=== PATIENT | male | born 1950 | race Caucasian/White ===

== ENCOUNTER 2017-04-09 10:20 | Emergency (ER) | payer MEDICARE, SELFPAY ==
[~2017-04-09] VITALS: Ht 188 cm; Wt 104.3 kg
[~2017-04-09 10:20] MED LIST: ACET325 PO; ALPR.25 PO; AMILODIPINE; AMLO5; AMLO5 PO; ASPI325 PO; ASPI325EC; ASPI81CH; ASPI81CH PO; ASPI81EC; ASPI81EC PO; ATECHL; Ambien10 MG PO; CALCAVITDA PO; CARV25; CARV25 PO; CARV3.125; CENTRUM SILVER1 EAC1 PO; CLOP75 PO; Cholest Off450 MG PO; Co Q-10100 MG PO; Coq-1030 MG PO; DIGO.125; DIGO.125 PO; DIGO.25 PO; DIOVAN/HCT; FLOXETINE; FLUO20; FLUO20 PO; GLIM2; GLIP5ER PO; HYDACE5 PO; HYDCHL12.5; HYDCHL25 PO; HYDMOR2 PO; HYDR1TAB94 PO; Humalog100 UNIT/1; Hydrochlorothia25 MG PO; IBUP400 PO; INSDET100 SUBQ; INSULANI SC; ISODIN20 PO; ISOMON20 PO; ISOMON30 PO; K-Dur 20 meq T20 MEQ PO; LAMO100 PO; LAMO25 PO; LAMO50 PO; LOSA50; LOSA50 PO; METF500; METO50 PO; METO50ER PO; MULTI VITAMIN1 EACH PO; NITR.4SL; NITR.4SL SL; Norco 5-325 Ta1 EACH PO; OXYACE5C PO; OXYACE5T; OXYACE5T PO; OXYC5 PO; POTCHL10ER PO; PRAV20 PO; Percocet 5-3251 EACH PO; ROSU10TA; ROSU10TA PO; ROSU5 PO; RXHYDMOR2 PO; SERT100 PO; SPIR25; SPIR25 PO; UBID10 PO; VALS80; VALS80 PO; WARF1; WARF1 PO; WARF2 PO; WARF3 PO; WARF4 PO; ZOLP10; ZOLP10 PO; Zofran8 MG PO; [UNRECOGNIZED DRUG - REMARK]
[2017-04-09 11:20] LABS: BASOPHILS ABSOLUTE AUTO 0.04 K/mm3 (0.00-0.23); BASOPHILS PERCENT AUTO 1 % (0-2); EOSINOPHILS ABSOLUTE AUTO 0.09 K/mm3 (0.00-0.68); EOSINOPHILS PERCENT AUTO 1 % (0-6); Hematocrit 52.3 % (37.0-53.0); Hemoglobin 18.2 g/dL (13.5-17.5); IMMATURE GRAN ABSOLUTE AUTO 0.03 K/mm3 (0.00-0.10); IMMATURE GRAN PERCENT AUTO 0 % (0-1); LYMPHOCYTES ABSOLUTE AUTO 1.81 K/mm3 (0.84-5.20); LYMPHOCYTES PERCENT AUTO 21 % (21-46); MONOCYTES ABSOLUTE AUTO 1.07 K/mm3 (0.16-1.47); MONOCYTES PERCENT AUTO 13 % (4-13); Mean Corpuscular HGB 30.4 pg (26.0-34.0); Mean Corpuscular HGB Conc 34.8 g/dL (31.5-36.5); Mean Corpuscular Volume 88 fL (80-100); Mean Platelet Volume 10.9 fL (9.1-12.4); NEUTROPHILS ABSOLUTE AUTO 5.54 K/mm3 (1.96-9.15); NEUTROPHILS PERCENT AUTO 65 % (41-73); Platelet Count 176 K/mm3 (150-400); RDW Coefficient Variation 12.7 % (11.7-14.2); RDW Standard Deviation 40.4 fL (35.1-46.3); Red Blood Cell Count 5.98 M/mm3 (4.30-5.90); White Blood Cell Count 8.58 K/mm3 (4.00-11.30)
[2017-04-09 11:35] LABS: Alanine Aminotransfer (ALT/SGP 25 U/L (12-78); Albumin, Blood 3.6 g/dL (3.4-5.0); Albumin/Globulin Ratio 0.9 (0.8-1.8); Alk Phos 82 U/L (50-136); Anion Gap 10 mmol/L (6-16); Aspartate Aminotrans (AST/SGOT 15 U/L (12-37); Bilirubin, Total 0.7 mg/dL (0.1-1.0); Blood Urea Nitrogen 20 mg/dL (8-24); Bun/Creatinine Ratio 24.6 (12.0-20.0); CO2, Blood 25 mmol/L (21-32); Calcium, Blood 8.9 mg/dL (8.5-10.1); Chloride, Blood 101 mmol/L (98-108); Creatinine, Blood 0.81 mg/dL (0.60-1.20); Globulin, Blood 3.8 g/dL (2.2-4.0); Glomerular Filtration Rate >60 (60-); Glucose, Blood 232 mg/dL (70-99); Potassium, Blood 4.1 mmol/L (3.5-5.5); Sodium, Blood 136 mmol/L (136-145); Total Protein, Blood 7.4 g/dL (6.4-8.2)
[2017-04-09 11:39] LABS: International Normalized Ratio 3.71; Prothrombin Time Results 40.2 Sec (9.7-11.5)
[2017-04-09 11:58] LABS: Digoxin (Lanoxin) 0.41 ug/mL (0.80-2.00)
[2017-04-09] MEDS ORDERED: ROSU10TA PO (14:23)
[2017-04-09 14:40] LABS: Source, Urine Clean Catch
[2017-04-09 15:13] LABS: Bilirubin, Urine Neg (Neg); Blood, Urine 3+ (Neg); Glucose Qualitative, Urine 3+ (Neg); Ketones, Urine Neg (Neg); Leukocyte Esterase, Urine Neg (Neg); Nitrite, Urine Neg (Neg); Protein, Urine 3+ (Neg); Specific Gravity, Urine 1.025 (1.003-1.022); Urobilinogen, Urine 1+ (Normal)
[2017-04-09 15:32] LABS: Appearance, Urine Clear (Clear); Color, Urine Yellow (P-Yellow)
[2017-04-09 15:33] LABS: White Blood Cells, Urine 0-2 /hpf (0-5)
[2017-04-09 15:34] LABS: Bacteria Not Seen /hpf; Red Blood Cells, Urine Not Seen /hpf (0-2); Squamous Epithelial Cells Not Seen /hpf (Few)
[2017-04-09 15:38] LABS: Troponin I <0.015 ng/mL (0.000-0.040)
[2017-04-09] MEDS ORDERED: Zofran Odt4 MG SL (17:44)
== END 2017-04-09 17:55 | disposition home or self-care (01) ==
LOC: ER 10:20
PROVIDERS: Emergency Medicine
DX: R07.9 Chest pain, unspecified (principal); R10.31 Right lower quadrant pain; R10.32 Left lower quadrant pain; I25.2 Old myocardial infarction; I48.91 Unspecified atrial fibrillation; E11.9 Type 2 diabetes mellitus without complications; I10 Essential (primary) hypertension; F41.9 Anxiety disorder, unspecified; Z79.899 Other long term (current) drug therapy; Z79.01 Long term (current) use of anticoagulants; Z87.442 Personal history of urinary calculi; Z95.5 Presence of coronary angioplasty implant and graft; Z79.82 Long term (current) use of aspirin
CPT/HCPCS: 36415; 71046; 71250; 74176; 80053; 80162; 81001; 83690; 84484; 85025; 85610; 93005; 93010; 96374; 99284; J2405

== ENCOUNTER → 2019-08-27 | Outpatient (CLI) | payer MEDICARE ==
[~2019-08-27] MED LIST changes: +Zofran Odt4 MG SL
[2019-08-27 11:41] LABS: Creatinine, Urine Random 91.9 mg/dL (27.00-270.00)
[2019-08-27 12:06] LABS: Microalb/Creat Ratio UR, Rand 496.192 mg/g (0.000-30.000)
== END | disposition home or self-care (01) ==
LOC: LAB SHORT 07:09 → OLS 07:09 → LAB FUT 08-03 08:20
PROVIDERS: Physician Assistant
DX: E11.69 Type 2 diabetes mellitus with other specified complication (principal)
CPT/HCPCS: 82043; 82570

== ENCOUNTER → 2019-11-18 | Outpatient (CLI) | payer MEDICARE | END | disposition home or self-care (01) | LOC: LAB SHORT 08:34 → PLD 08:34 | DX: L57.0 Actinic keratosis (principal) | CPT/HCPCS: 88305 ==

== ENCOUNTER → 2020-10-05 | Outpatient (CLI) | payer MEDICARE ==
[2020-10-05 16:30] LABS: International Normalized Ratio 1.77; Prothrombin Time Results 18.5 Sec (9.7-11.5)
== END | disposition home or self-care (01) ==
LOC: LAB SHORT 15:36
PROVIDERS: Physician Assistant
DX: Z79.01 Long term (current) use of anticoagulants (principal); Z51.81 Encounter for therapeutic drug level monitoring; R31.9 Hematuria, unspecified
CPT/HCPCS: 85610; 87086; 87147

== ENCOUNTER 2021-04-28 09:13 | Emergency (ER) | payer OTHER, MEDICARE ==
[~2021-04-28] VITALS: Ht 185.4 cm; Wt 122.5 kg
[2021-04-28] MEDS ORDERED: Norco 5-325 Ta1 EACH PO (11:16)
== END 2021-04-28 11:50 | disposition home or self-care (01) ==
LOC: ER 09:13
DX: S20.212A Contusion of left front wall of thorax, initial encounter (principal); I25.2 Old myocardial infarction; I48.91 Unspecified atrial fibrillation; E11.9 Type 2 diabetes mellitus without complications; R56.9 Unspecified convulsions; Z86.73 Personal history of transient ischemic attack (TIA), and cerebral infarction without residual deficits; Z79.01 Long term (current) use of anticoagulants; Z79.82 Long term (current) use of aspirin; Z79.899 Other long term (current) drug therapy; W01.0XXA Fall on same level from slipping, tripping and stumbling without subsequent striking against object, initial encounter
CPT/HCPCS: 51798; 71101; 93005; 93010; 99284-25; A9270

== ENCOUNTER 2021-05-03 22:29 | Inpatient (IN) | payer MEDICARE, OTHER ==
[~2021-05-03] VITALS: Ht 185.4 cm; Wt 133.5 kg
[~2021-05-03 22:29] MED LIST changes: -ISODIN20 PO; +Isosorbide Mono30 MG PO; +LANOXIN125 MCG PO; +SUBVENITE150 M1 PO
[2021-05-03 22:53] LABS: BASOPHILS ABSOLUTE AUTO 0.04 K/mm3 (0.00-0.23); BASOPHILS PERCENT AUTO 1 % (0-2); EOSINOPHILS ABSOLUTE AUTO 0.06 K/mm3 (0.00-0.68); EOSINOPHILS PERCENT AUTO 1 % (0-6); Hematocrit 51.4 % (37.0-53.0); Hemoglobin 17.2 g/dL (13.5-17.5); IMMATURE GRAN ABSOLUTE AUTO 0.03 K/mm3 (0.00-0.10); IMMATURE GRAN PERCENT AUTO 0 % (0-1); LYMPHOCYTES ABSOLUTE AUTO 0.86 K/mm3 (0.84-5.20); LYMPHOCYTES PERCENT AUTO 10 % (21-46); MONOCYTES ABSOLUTE AUTO 1.09 K/mm3 (0.16-1.47); MONOCYTES PERCENT AUTO 13 % (4-13); Mean Corpuscular HGB 30.6 pg (26.0-34.0); Mean Corpuscular HGB Conc 33.5 g/dL (31.5-36.5); Mean Corpuscular Volume 91 fL (80-100); Mean Platelet Volume 10.7 fL (9.1-12.4); NEUTROPHILS ABSOLUTE AUTO 6.28 K/mm3 (1.96-9.15); NEUTROPHILS PERCENT AUTO 75 % (41-73); Platelet Count 175 K/mm3 (150-400); RDW Coefficient Variation 13.5 % (11.7-14.2); RDW Standard Deviation 45.5 fL (35.1-46.3); Red Blood Cell Count 5.63 M/mm3 (4.30-5.90); White Blood Cell Count 8.36 K/mm3 (4.00-11.30)
[2021-05-03] MEDS ORDERED: AMLO10 PO (23:00)
[2021-05-03] MEDS ORDERED: METO50 PO (23:05)
[2021-05-03] MEDS ORDERED: POTCHL20ER PO (23:05)
[2021-05-03] MEDS ORDERED: NAMENDA XR7 MG PO (23:07)
[2021-05-03] MEDS ORDERED: METF500 PO (23:07)
[2021-05-03] MEDS ORDERED: DONE10 PO (23:08)
[2021-05-03] MEDS ORDERED: GLIP5 PO (23:08)
[2021-05-03] MEDS ORDERED: BASAGLAR K100 UNIT/8 SC (23:09)
[2021-05-03] MEDS ORDERED: FIASP 100100 UNIT/3 SC (23:12)
[2021-05-03 23:15] LABS: Alanine Aminotransfer (ALT/SGP 37 U/L (12-78); Albumin, Blood 3.4 g/dL (3.4-5.0); Albumin/Globulin Ratio 0.8 (0.8-1.8); Alk Phos 105 U/L (50-136); Anion Gap 10 mmol/L (6-16); Aspartate Aminotrans (AST/SGOT 29 U/L (12-37); Bilirubin, Total 0.7 mg/dL (0.1-1.0); Blood Urea Nitrogen 15 mg/dL (8-24); Bun/Creatinine Ratio 17.2 (12.0-20.0); CO2, Blood 27 mmol/L (21-32); Calcium, Blood 8.8 mg/dL (8.5-10.1); Chloride, Blood 97 mmol/L (98-108); Creatinine, Blood 0.87 mg/dL (0.60-1.20); Glomerular Filtration Rate >60 (60-); Glucose, Blood 188 mg/dL (70-99); Potassium, Blood 3.6 mmol/L (3.5-5.5); Sodium, Blood 134 mmol/L (136-145); Total Protein, Blood 7.4 g/dL (6.4-8.2)
[2021-05-03 23:34] LABS: Influenza A, PCR NEGATIVE (NEGATIVE); Influenza B, PCR NEGATIVE (NEGATIVE); Resp Syncytial Virus, PCR NEGATIVE (NEGATIVE)
[2021-05-03 23:36] LABS: SARS-Cov-2 (COVID-19) PCR, MMC POSITIVE (NEGATIVE)
[2021-05-04 04:00] LABS: Source, Urine Foley catheter
[2021-05-04 04:04] LABS: Bilirubin, Urine Neg (Neg); Blood, Urine 2+ (Neg); Glucose Qualitative, Urine 2+ (Neg); Ketones, Urine Neg (Neg); Leukocyte Esterase, Urine Neg (Neg); Nitrite, Urine Neg (Neg); Protein, Urine 3+ (Neg); Urobilinogen, Urine NORM (Normal)
[2021-05-04 04:12] LABS: BASOPHILS ABSOLUTE AUTO 0.03 K/mm3 (0.00-0.23); BASOPHILS PERCENT AUTO 0 % (0-2); EOSINOPHILS ABSOLUTE AUTO 0.01 K/mm3 (0.00-0.68); EOSINOPHILS PERCENT AUTO 0 % (0-6); Hematocrit 45.9 % (37.0-53.0); Hemoglobin 15.3 g/dL (13.5-17.5); IMMATURE GRAN ABSOLUTE AUTO 0.05 K/mm3 (0.00-0.10); IMMATURE GRAN PERCENT AUTO 1 % (0-1); LYMPHOCYTES ABSOLUTE AUTO 0.77 K/mm3 (0.84-5.20); LYMPHOCYTES PERCENT AUTO 10 % (21-46); MONOCYTES ABSOLUTE AUTO 0.46 K/mm3 (0.16-1.47); MONOCYTES PERCENT AUTO 6 % (4-13); Mean Corpuscular HGB 30.4 pg (26.0-34.0); Mean Corpuscular HGB Conc 33.3 g/dL (31.5-36.5); Mean Corpuscular Volume 91 fL (80-100); Mean Platelet Volume 10.5 fL (9.1-12.4); NEUTROPHILS ABSOLUTE AUTO 6.47 K/mm3 (1.96-9.15); NEUTROPHILS PERCENT AUTO 83 % (41-73); Platelet Count 176 K/mm3 (150-400); RDW Coefficient Variation 13.6 % (11.7-14.2); RDW Standard Deviation 45.6 fL (35.1-46.3); Red Blood Cell Count 5.03 M/mm3 (4.30-5.90); White Blood Cell Count 7.79 K/mm3 (4.00-11.30)
[2021-05-04 04:29] LABS: International Normalized Ratio 2.23; Prothrombin Time Results 22.2 Sec (9.7-11.5)
[2021-05-04 04:31] LABS: Anion Gap 8 mmol/L (6-16); Blood Urea Nitrogen 16 mg/dL (8-24); Bun/Creatinine Ratio 18.6 (12.0-20.0); CO2, Blood 29 mmol/L (21-32); Calcium, Blood 8.3 mg/dL (8.5-10.1); Chloride, Blood 98 mmol/L (98-108); Creatinine, Blood 0.86 mg/dL (0.60-1.20); Glomerular Filtration Rate >60 (60-); Glucose, Blood 269 mg/dL (70-99); Potassium, Blood 3.7 mmol/L (3.5-5.5); Sodium, Blood 135 mmol/L (136-145)
[2021-05-04 04:38] LABS: Color, Urine Yellow (P-Yellow)
[2021-05-04 04:39] LABS: Appearance, Urine Clear (Clear); Bacteria Not Seen /hpf; Red Blood Cells, Urine 0-2 /hpf (0-2); Squamous Epithelial Cells Rare /hpf (Few); Transitional Epithelial Cells Few /hpf (0-Rare); White Blood Cells, Urine Rare /hpf (0-5)
[2021-05-04 04:44] LABS: Digoxin (Lanoxin) 0.33 ug/mL (0.80-2.00)
--- NOTE | 2021-05-04 06:13 | NUR ---
ASSUMPTION OF CARE PT ARRIVED TO ICU VIA ROSE [place], [place] TO ICU BED VIA SLIDER SHEET. PT ALERT TO PERSON AND PLACE, FOLLOWING COMMANDS, UNDERLYING STAGE 5 ALZHEIMERS. PT c HX OF PREVIOUS STROKE c SIGNIFICANT DEFICIT, UNABLE TO CARE FOR SELF, CANNOT PROVIDE DETAILED HISTORY. PT COVID POSITIVE, ON 2LPM O2 VIA NC c O2 SATS >90%. A-FIB IN 110-130'S ON GREASE MAKER HEAD. PT AND LINENS MOIST FROM URINARY INCONTINENCE, SHEETS CHANGED. TEMP PROBE COLEMAN INSERTED, PT AFEBRILE. 20GA IV IN R HAND c NS INFUSING, 1L NS COMPLETE SHORTLY AFTER ARRIVAL. SECOND IV ESTABLISHED IN L ARM BUT INFILTRATED c PT MOVING IN BED. PT VERY RESTLESS UPON ARRIVAL, FAN ON PT PER PT REQUEST. PT CURRENTLY IN POSITION OF COMFORT, SLEEPING c CALL LIGHT IN REACH.
--- NOTE | 2021-05-04 06:26 | NUR ---
FAMILY UPDATE THE FOLLOWING INFORMATION RECEIVED FROM PTS DAUGHTER JOE VIA PHONE CONVERSATION. PT LIVES AT HOME WITH SPOUSE, FABRIZIO. FABRIZIO IS [place] AND SPEAKS LIMITED TURKISH. [employer] [facility] WITH DAILY NEEDS DURING THE WEEKDAYS. FAMILY ATTEMPTED TO TRANSITION PT TO [facility] BUT PT HAS STAGE 5 ALZHEIMERS. PTS ADVANCED DIRECTED AT HOME WITH DAUGHTER MARIE. MEDICAL POWER OF GEOLOGICAL SAMPLE TESTER SHARED BETWEEN JOE HUITRON, MARIE DENISE, AND SHOAIB. JOE STATED SHE WOULD ASK MARIE TO BRING BY UPDATED MED LIST, ADVANCED DIRECTIVE, AND ANY OTHER APPLICABLE INFORMATION. MARIE REQUESTS TO BE UPDATED OF PT CONDITION/ PRIOR TO DC. MARIE DENISE- [phone].
--- NOTE | 2021-05-04 07:30 | NUR ---
ASSUMED CARE: PT RESTING IN BED, 2L NC IN PLACE WITH SATS IN MID 90S. AFIB ON TELE WITH HR IN 1TEENS. NO ACUTE NEEDS OR CONCERNS AT THIS TIME.
--- NOTE | 2021-05-04 12:05 | NUR ---
PT WAS ALARMING FOR O2 SATS DROPPING INTO 80S THEN WOULD INCREASE INTO 90S. MOVED NC INTO MOUTH DURING SLEEP. WHEN SPEAKING WITH PT, HE IS ABLE TO MAKE NEEDS KNOWN AND STATES HE IS ABLE TO FEED SELF. CALL TO PT'S DAUGHTER REGARDING MEDICATION LIST. SHE STATES SHE HAD CONVERSATION WITH DR BLAKELY REGARDING MEDS AND DISCHARGE PLANS, ESPECIALLY FOR MEMORY CARE FACILITY. CALL TO DR BLAKELY WHO STATES HE REFERRED TO JUANA'S MEDICATION LIST BUT RN WILL LOOK FOR UPDATED LIST DAUGHTER STATES SHE FAXED. AWARE OF INCREASED BLOOD SUGARS AND WILL REVIEW. BUILDING ADMIN CONUSULT TO BE PLACED DUE TO FAMILY WANTING HELP WITH DISCHARGE PLANS
--- NOTE | 2021-05-04 12:25 | NUR ---
DAUGHTER ATTEMPTED TO FAX MED LIST THAT WAS FROM [facility]. NO FAX FOUND. CALL TO DAUGHTER WHO STATES SHE WILL ATTEMPT TO FIND OUT FROM FAMILY MEMBERS IF ANY LIST IS AVAILABLE BEYOND WHAT WE ALREADY HAVE
--- NOTE | 2021-05-04 12:34 | NUR ---
DR BLAKELY AWARE THAT WE ARE WAITING FOR SECOND FAX TO VERIFY MED LIST. PT/OT CONSULTS IN PLACE TO HELP WITH EVALUATIONS AND DISCHARGE PLANNING
--- NOTE | 2021-05-04 12:50 | NUR ---
DAUGHTER CALLED AND STATED THAT [facility] LIST THAT WAS SENT WITH PT WAS ONLY MED LIST FAMILY COULD FIND.
--- NOTE | 2021-05-04 16:08 | NUR ---
ASSISTED PT WITH PHONE CALL WITH HIS DAUGHTER. PT TOLD DAUGHTER THAT HE HAD NOT BEEN EATING OR DRINKING. DAUGHTER THEN SPOKE WITH THIS RN AND ASKED ABOUT IT. RN TOLD DAUGHTER THAT PT HAS BEEN EATING MEALS TODAY. PT ASKED WHAT HE HAD AND RN REMINDED HIM. PT THEN SAID "OH THAT'S RIGHT." DAUGHTER WAS SATISFIED WITH THIS AND HAD NO FURTHER QUESTIONS
--- NOTE | 2021-05-04 18:09 | NUR ---
SHIFT SUMMARY: PT ON RA, SATTING MID 90S. AFIB ON TELE WITH HR 105. PRN AVAILABLE IF HR GETS ABOVE 120 CONSISTENTLY. FAMILY HAS BEEN UPDATED THIS SHIFT ON PT'S STATUS. AWAITING MEDICAL FLOOR BED. PT/OT EVALUATED WITH RECOMMENDATION FOR MEMORY CARE FACILITY. PT'S SHORT TERM MEMORY SEEMS TO BE WHERE HE STRUGGLES, HAS POOR SHORT TERM RECALL BUT [facility] APPEARS IN TACT. POWER GLIDE PLACED AND IV FLUIDS RUNNING X1 BAG. NO ACUTE NEEDS AT THIS TIME.
--- NOTE | 2021-05-04 19:30 | NUR ---
ASSUMPTION OF CARE PT IS ALERT, VSS W/NO S/S OF ACUTE DISTRESS NOTED AT TIME OF ASSUMPTION OF CARE
[2021-05-05 05:24] LABS: BASOPHILS ABSOLUTE AUTO 0.02 K/mm3 (0.00-0.23); BASOPHILS PERCENT AUTO 0 % (0-2); EOSINOPHILS ABSOLUTE AUTO 0.01 K/mm3 (0.00-0.68); EOSINOPHILS PERCENT AUTO 0 % (0-6); Hematocrit 43.8 % (37.0-53.0); Hemoglobin 14.6 g/dL (13.5-17.5); IMMATURE GRAN ABSOLUTE AUTO 0.04 K/mm3 (0.00-0.10); IMMATURE GRAN PERCENT AUTO 1 % (0-1); LYMPHOCYTES ABSOLUTE AUTO 1.62 K/mm3 (0.84-5.20); LYMPHOCYTES PERCENT AUTO 19 % (21-46); MONOCYTES ABSOLUTE AUTO 1.37 K/mm3 (0.16-1.47); MONOCYTES PERCENT AUTO 16 % (4-13); Mean Corpuscular HGB 30.4 pg (26.0-34.0); Mean Corpuscular HGB Conc 33.3 g/dL (31.5-36.5); Mean Corpuscular Volume 91 fL (80-100); Mean Platelet Volume 10.2 fL (9.1-12.4); NEUTROPHILS ABSOLUTE AUTO 5.29 K/mm3 (1.96-9.15); NEUTROPHILS PERCENT AUTO 63 % (41-73); Platelet Count 179 K/mm3 (150-400); RDW Coefficient Variation 13.4 % (11.7-14.2); RDW Standard Deviation 45.5 fL (35.1-46.3); White Blood Cell Count 8.35 K/mm3 (4.00-11.30)
[2021-05-05 05:39] LABS: Albumin, Blood 2.9 g/dL (3.4-5.0); Anion Gap 7 mmol/L (6-16); Blood Urea Nitrogen 22 mg/dL (8-24); Bun/Creatinine Ratio 28.1 (12.0-20.0); CO2, Blood 30 mmol/L (21-32); Calcium, Blood 8.3 mg/dL (8.5-10.1); Chloride, Blood 99 mmol/L (98-108); Creatinine, Blood 0.78 mg/dL (0.60-1.20); Glomerular Filtration Rate >60 (60-); Glucose, Blood 299 mg/dL (70-99); Phosphorus, Blood 3.1 mg/dL (2.5-4.9); Potassium, Blood 3.5 mmol/L (3.5-5.5); Sodium, Blood 136 mmol/L (136-145)
--- NOTE | 2021-05-05 06:26 | NUR ---
SHIFT SUMMERY NO ACUTE CHANGES OVERNIGHT
--- NOTE | 2021-05-05 07:30 | NUR ---
ASSUMED CARE: PT RESTING IN BED WATCHING TV. 2L NC IN PLACE FOR DESATURATION WITH SLEEP. DR BLAKELY CAME TO SEE PT THIS AM WITH NO NEW ORDERS. STATES HE WILL UPDATE FAMILY TODAY. PT IS CURRENTLY AFIB WITH PVCS AT 95. NO ACUTE NEEDS OR CONCERNS.
--- NOTE | 2021-05-05 13:10 | NUR ---
PT STATES HE IS HAVING LEFT SHOULDER PAIN. SPOKE WITH DR BLAKELY AND RECIEVED ORDERS FOR TYLENOL PRN. WHEN APPROACHING PT WITH TYLENOL HE SAID HIS PAIN HAD BEEN IGNORED FOR HOURS. REMINDED HIM THAT ONCE HE MENTIONED THE PAIN, THIS RN CONTACTED AND GOT ORDERS FOR MEDICATIONS AND BROUGHT MEDS IN WHEN AVAILABLE. REMINDED HIM THAT NEW MEDICATIONS WAS A PROCESS THAT TAKES SOME TIME. PT BECAME APOLOGETIC. SPOKE WITH PALLIATIVE CARE TO SEE IF PT WOULD QUALIFY FOR HOSPICE AND RELAYED TO HER THAT PT IS RECOMMENDED FOR MEMORY CARE FACILITY.
--- NOTE | 2021-05-05 14:56 | NUR ---
REPORT CALLED TO ROSALIA SHER. PT'S FAMILY AWARE OF TRANSFER AND STOOD OUTSIDE PT'S WINDOW AND SPOKE TO PT OVER THE PHONE. PT MEDICATED FOR PAIN AND STATED HE GOT RELIEF WITH THIS. WHEN FAMILY LEFT, PT TRANSFERRED VIA BED TO ROOM 310
--- NOTE | 2021-05-05 16:50 | NUR ---
Palliative Care note: Extensive conversation by speaker phone with pt's two daughters and son. Their primary goal at this time is to get pt placed in a memory care facility with as much support in place as possible. They have been working on this prior to this admission and have been in contact with [facility] and [facility] alondra godoy. Pt had a hospital stay approx a week ago due to a fall and injury at home. His is his primary CG, Beth nurse visits and [facility] care provides some assist but cannot staff all the hours that Jeremi is approved for. 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 She is an ESL speaker and family has been his advocate for placement and health care decisions. Sandra reports pt's is very petite and she is unsure how she has been able to physically give the assist her dad, "a very big layla", has needed with transfers and mobility. I spoke to family in detail about hospice in the future, criteria required, what it would look like in a memory care unit and if future events such as infection, falls or fx, CVA were to occur. My sense is, in agreement with and Family, that pt may not meet hospice criteria at this time with dx of dementia but his current COVID and sepsis may be the start of a more rapid decline or inability to recover. My plan is to contact Beth and speak with his visiting nurse who will have a better idea of his baseline. plans to meet with family in person tomorrow to further discuss plans for care. Pt was transferred from ICU to medical floor this afternoon. His nurse was updated on all of above. Screener notified of am family/ meeting and VM left for EFM CM re: same.
--- NOTE | 2021-05-05 17:10 | NUR ---
SHIFT SUMMARY PATIENT TRANSFERRED FROM ICU AT 1510. PATIENT SETTLED INTO ROOM. FAMILY NOTIFIED OF ROOM CHANGE. PATIENT DENIES PAIN, NAUSEA, AND SHORTNESS OF BREATH. PATIENT IS SATURATING AT 93% ON ROOM AIR. I DID GET REPORT THAT PATIENT HAS BEEN DESATTING AT NIGHT WHEN ASLEEP. PATIENT IS A 2 PERSON MAX ASSIST TO GET OUT OF BED. PER FAMILY, HE IS ALMOST BEDBOUND AT HOME. PALLIATIVE CARE CONSULT TODAY, PATIENT MADE DNR. PER DR. BLAKELY, 3 FAMILY MEMBERS COMING TOMORROW FOR MEETING WITH DOCTOR AND PALLIATIVE CARE. PATIENT IS EATING AND DRINKING WELL. PATIENT IS PLEASANTLY CONFUSED. PATIENT HAS ALMOST NO SHORT TERM MEMORY. PATIENT IS AWAITING MEMORY CARE PLACEMENT.
[2021-05-05] MEDS ORDERED: TRIDERM28.4 GM TOP (20:52)
[2021-05-05] MEDS ORDERED: BUME1 PO (20:53)
[2021-05-05] MEDS ORDERED: ALEVAZOL56.7 G1 TOP (20:55)
[2021-05-05] MEDS ORDERED: Norco 5-325 Ta1 EACH PO (21:00)
--- NOTE | 2021-05-06 05:47 | NUR ---
Patient is alert and oriented to self. Patient is forgetful. He is able to follow commands but cannot recall anything from previous conversation. He started getting agitated in the morning insisting he wants to get up and pee. He also wants to go home. Educated patient that he has a barrientos cathether in place. Patient is not understanding that. Urine output from barrientos catheter is light pink. He was attempting to pull it out. It could be from trauma from pulling. Informing MD through telephone now. Patient is redirectable but impulsive. Patients call light within reach. Bed alarm on. Bed in lowest position. 3 bed rails up. educated patient not to get up without assistance.
--- NOTE | 2021-05-06 05:54 | NUR ---
Informed Dr. Martin about pink output from barrientos cathether. said to monitor. Hold blood thinners for the AM will let morning nurse know. Will continue to monitor barrientos cathether output until end of shift.
[2021-05-06 06:18] LABS: BASOPHILS ABSOLUTE AUTO 0.03 K/mm3 (0.00-0.23); BASOPHILS PERCENT AUTO 0 % (0-2); EOSINOPHILS ABSOLUTE AUTO 0.03 K/mm3 (0.00-0.68); EOSINOPHILS PERCENT AUTO 0 % (0-6); Hematocrit 46.6 % (37.0-53.0); Hemoglobin 15.5 g/dL (13.5-17.5); IMMATURE GRAN ABSOLUTE AUTO 0.06 K/mm3 (0.00-0.10); IMMATURE GRAN PERCENT AUTO 1 % (0-1); LYMPHOCYTES ABSOLUTE AUTO 2.33 K/mm3 (0.84-5.20); LYMPHOCYTES PERCENT AUTO 20 % (21-46); MONOCYTES ABSOLUTE AUTO 1.12 K/mm3 (0.16-1.47); MONOCYTES PERCENT AUTO 9 % (4-13); Mean Corpuscular HGB 30.1 pg (26.0-34.0); Mean Corpuscular HGB Conc 33.3 g/dL (31.5-36.5); Mean Corpuscular Volume 91 fL (80-100); Mean Platelet Volume 10.8 fL (9.1-12.4); NEUTROPHILS ABSOLUTE AUTO 8.33 K/mm3 (1.96-9.15); NEUTROPHILS PERCENT AUTO 70 % (41-73); Platelet Count 212 K/mm3 (150-400); RDW Coefficient Variation 13.3 % (11.7-14.2); RDW Standard Deviation 44.3 fL (35.1-46.3); Red Blood Cell Count 5.15 M/mm3 (4.30-5.90)
--- NOTE | 2021-05-06 06:20 | NUR ---
Patient refused blood pressure medications last night and this morning. Her blood pressure is elevated, educated patient about high blood pressure. She still continues to refuse her pills.
[2021-05-06 06:53] LABS: Albumin, Blood 3.1 g/dL (3.4-5.0); Anion Gap 9 mmol/L (6-16); Blood Urea Nitrogen 18 mg/dL (8-24); CO2, Blood 30 mmol/L (21-32); Calcium, Blood 7.9 mg/dL (8.5-10.1); Chloride, Blood 97 mmol/L (98-108); Creatinine, Blood 0.72 mg/dL (0.60-1.20); Glomerular Filtration Rate >60 (60-); Glucose, Blood 195 mg/dL (70-99); Phosphorus, Blood 2.5 mg/dL (2.5-4.9); Potassium, Blood 3.2 mmol/L (3.5-5.5); Sodium, Blood 136 mmol/L (136-145)
--- NOTE | 2021-05-06 14:58 | NUR ---
APD usp application has been approved. Per clinical case manager Jamila Willis. Contacted the following memory care facilities: 1. [facility]/Kaela [phone] No Medicaid openings 2. [facility]/Mary Beth [phone] No Medicaid openings 3. [facility] Knott/Diana [phone] Declined patient due to high acuity ratio and staffing 4. [facility]/[phone] No Medicaid openings 5. [facility]/Lalo [phone] Em[facility] packet [facility] [email or web address] [employer]
--- NOTE | 2021-05-06 17:44 | NUR ---
Case conference with pt's bedside RN after transfer to medical floor. Update on current status and family meeting with and CM. Will remain available if needed further.
--- NOTE | 2021-05-06 18:23 | NUR ---
PT AOX3 AND COOPERATIVE OF CARE. PT HAS BEEN DOING WELL. AT TIMES NEEDS REDIRECTED THAT HE IS STAYING AT THE HOSPITAL. BED ALARM IS NEEDED IN CASE HE GETS IMPULSIVE DUE TO THINKING HE IS LEAVING SOON. PT TREATED FOR L SHOULDER PAIN PER EMAR. O2 WAS DESATING A BIT IN THE AM AND HE WAS KEEP ON 2L. LAST PART OF THE DAY PT WAS RA AND SATING IN THE 90s. NO DISTRESS NOTED WILL CONTINUE TO MONITOR.
[2021-05-07 05:14] LABS: BASOPHILS ABSOLUTE AUTO 0.01 K/mm3 (0.00-0.23); BASOPHILS PERCENT AUTO 0 % (0-2); EOSINOPHILS ABSOLUTE AUTO 0.02 K/mm3 (0.00-0.68); EOSINOPHILS PERCENT AUTO 0 % (0-6); Hematocrit 46.4 % (37.0-53.0); Hemoglobin 15.5 g/dL (13.5-17.5); IMMATURE GRAN ABSOLUTE AUTO 0.04 K/mm3 (0.00-0.10); IMMATURE GRAN PERCENT AUTO 1 % (0-1); LYMPHOCYTES ABSOLUTE AUTO 1.96 K/mm3 (0.84-5.20); LYMPHOCYTES PERCENT AUTO 23 % (21-46); MONOCYTES ABSOLUTE AUTO 1.06 K/mm3 (0.16-1.47); MONOCYTES PERCENT AUTO 13 % (4-13); Mean Corpuscular HGB 30.3 pg (26.0-34.0); Mean Corpuscular HGB Conc 33.4 g/dL (31.5-36.5); Mean Corpuscular Volume 91 fL (80-100); Mean Platelet Volume 10.6 fL (9.1-12.4); NEUTROPHILS ABSOLUTE AUTO 5.34 K/mm3 (1.96-9.15); NEUTROPHILS PERCENT AUTO 63 % (41-73); Platelet Count 189 K/mm3 (150-400); RDW Coefficient Variation 13.2 % (11.7-14.2); RDW Standard Deviation 43.8 fL (35.1-46.3); Red Blood Cell Count 5.12 M/mm3 (4.30-5.90); White Blood Cell Count 8.43 K/mm3 (4.00-11.30)
[2021-05-07 05:53] LABS: Albumin, Blood 2.9 g/dL (3.4-5.0); Anion Gap 7 mmol/L (6-16); Blood Urea Nitrogen 20 mg/dL (8-24); Bun/Creatinine Ratio 24.2 (12.0-20.0); CO2, Blood 32 mmol/L (21-32); Chloride, Blood 99 mmol/L (98-108); Creatinine, Blood 0.83 mg/dL (0.60-1.20); Glomerular Filtration Rate >60 (60-); Glucose, Blood 249 mg/dL (70-99); Phosphorus, Blood 3.2 mg/dL (2.5-4.9); Potassium, Blood 3.4 mmol/L (3.5-5.5); Sodium, Blood 138 mmol/L (136-145)
--- NOTE | 2021-05-07 06:16 | NUR ---
PM SHIFT SUMMARY MR. DOYLE'S NC FELL OFF DURING THE MORNING AND HIS VS AT THIS TIME SHOWED A 90% SPO2. I PUT HIM BACK ON HIS NC AT 0610 AT 1.5L TO BRING THIS VALUE BACK UP A BIT. HE WAS VERY PLEASANT DURING MED PASS AND BLOOD DRAW. HE HAS NO COMPLAINTS AT THIS TIME.
--- NOTE | 2021-05-07 10:46 | NUR ---
Follow-up Call to [facility]: Spoke with Lalo Houser; patient declined due to insulin fluctuations. Facility has a increased population of high acuity patients and unable to accept patient at this time. Left message with Nadege Ramirez to follow-up on referral.
--- NOTE | 2021-05-07 15:36 | NUR ---
APD alf application has been approved. Per showcase trimmer Jamila Willis. Contacted the following memory care/alf facilities: 1. [facility] [phone] [place]/ declined due to max assist 2. [facility] [phone]/No Medicaid openings 3. Mira Gray [facility] [phone] faxed referral packet 4. Mar[facility] Olson [phone]/ private pay only 5. [facility] [phone]/private pay only 6. [facility] [phone] left message with Ranjith 7. Sent referral packet to Genoveva larios ([facility] and [facility])
--- NOTE | 2021-05-07 18:05 | NUR ---
NO ACUTE CHANGES AT THIS TIME PT IS AOX2-3 WITH MILD CONFUSION. PT WAS UP IN CHAIR AND COOPERATES WITH CARE. PT WILL USE CALL LIGHT. PT HAS COLEMAN REMOVED AND TOLERATED WELL. NO DISTRESS NOTED WILL CONTINUE TO MONITOR.
[2021-05-08 06:54] LABS: BASOPHILS ABSOLUTE AUTO 0.03 K/mm3 (0.00-0.23); BASOPHILS PERCENT AUTO 0 % (0-2); EOSINOPHILS ABSOLUTE AUTO 0.07 K/mm3 (0.00-0.68); EOSINOPHILS PERCENT AUTO 1 % (0-6); Hematocrit 47.1 % (37.0-53.0); Hemoglobin 16.1 g/dL (13.5-17.5); IMMATURE GRAN ABSOLUTE AUTO 0.07 K/mm3 (0.00-0.10); IMMATURE GRAN PERCENT AUTO 1 % (0-1); LYMPHOCYTES ABSOLUTE AUTO 2.37 K/mm3 (0.84-5.20); LYMPHOCYTES PERCENT AUTO 21 % (21-46); MONOCYTES ABSOLUTE AUTO 1.22 K/mm3 (0.16-1.47); MONOCYTES PERCENT AUTO 11 % (4-13); Mean Corpuscular HGB 30.5 pg (26.0-34.0); Mean Corpuscular HGB Conc 34.2 g/dL (31.5-36.5); Mean Corpuscular Volume 89 fL (80-100); Mean Platelet Volume 10.6 fL (9.1-12.4); NEUTROPHILS ABSOLUTE AUTO 7.34 K/mm3 (1.96-9.15); NEUTROPHILS PERCENT AUTO 66 % (41-73); Platelet Count 205 K/mm3 (150-400); RDW Coefficient Variation 13.1 % (11.7-14.2); RDW Standard Deviation 42.5 fL (35.1-46.3); Red Blood Cell Count 5.28 M/mm3 (4.30-5.90)
[2021-05-08 07:17] LABS: Albumin, Blood 2.8 g/dL (3.4-5.0); Anion Gap 7 mmol/L (6-16); Blood Urea Nitrogen 20 mg/dL (8-24); Bun/Creatinine Ratio 28.4 (12.0-20.0); CO2, Blood 31 mmol/L (21-32); Chloride, Blood 98 mmol/L (98-108); Glomerular Filtration Rate >60 (60-); Glucose, Blood 211 mg/dL (70-99); Phosphorus, Blood 2.8 mg/dL (2.5-4.9); Potassium, Blood 3.1 mmol/L (3.5-5.5); Sodium, Blood 136 mmol/L (136-145)
--- NOTE | 2021-05-08 07:22 | NUR ---
PM SHIFT SUMMARY PATIENT NO LONGER HAS HIS COLEMAN CATHETER IN, WHICH WAS AL'ED DURING AM SHIFT. HE IS NOW ON Q6 BLADDER SCANS WITH AN ORDER TO STRAIGHT CATH IF VOLUME OVER 500ML. HE HAS NOT BEEN OVER 200ML ON EITHER SCAN, HE IS VERY INCONTINENT. I EDUCATED HIM A FEW TIMES ON CALLING FOR HELP WITH THE URINAL BUT HE STATES HE CANNOT USE IT. WE CHANGED HIM ABOUT 6 TIMES DURING THE SHIFT. AT ONE POINT AROUND 0300, HE GOT VERY ANGRY THAT HE WAS WET AND WE WERE NTO DOING OUR JOBS. HE THEN STATED HE CAN'T TELL US WHEN HE HAS TO GO BECAUSE HE "HAS A BRAIN ISSUE" GOING ON. HE APOLOGIZED FOR THE OUTBURST AND STATED HE LOVES THE CARE WE PROVIDE. BLOOD CULTURES AT DAY 4 HAVE BEEN NEGATIVE. BLOOD PRESSURE IS STILL RUNNING INT HE 160-170 SBP AND 110-120 DBP RANGE. EVENTUAL PLANS IS AN LTAC FACILITY.
--- NOTE | 2021-05-08 09:49 | NUR ---
Packet sent to [facility] for COVID SNF referral. Spoke with [facility] Glass Mechanic Jamila Willis. Plan is SNF followed by long distance operator placement. Medicaid long distance operator application has been approved. Jamila will update daughter on placement. Awaiting to hear back from [facility].
--- NOTE | 2021-05-08 16:30 | NUR ---
CHANGED POWER GLIDE DRESSING. THE PT TOLERATED IT WELL
--- NOTE | 2021-05-08 17:18 | NUR ---
PT IS A/OX3, PLEASANT AND COOPERATIVE, FORGETFULL AT TIMES. THE PT WAS UP INTO THE CHAIR FOR LUNCH APPEARED TO BE BREATHING EASILY AT REST WITH O2 @ 1.5L/MIN THE PT DENIED ANY CHEST PAIN OR ANY OTHER PAIN T/O THE DAY. PER TELE THE PT HAD A [address] BLAKELY WAS NOTIFIED THE PT WAS ASYMPTOMATIC. CALL LIGHT IN REACH. WILL CONTINUE TO MONITOR AND ASSESS FOR CHANGES
[2021-05-09 05:14] LABS: BASOPHILS ABSOLUTE AUTO 0.04 K/mm3 (0.00-0.23); BASOPHILS PERCENT AUTO 0 % (0-2); EOSINOPHILS ABSOLUTE AUTO 0.11 K/mm3 (0.00-0.68); EOSINOPHILS PERCENT AUTO 1 % (0-6); Hematocrit 48.4 % (37.0-53.0); Hemoglobin 16.7 g/dL (13.5-17.5); IMMATURE GRAN ABSOLUTE AUTO 0.05 K/mm3 (0.00-0.10); IMMATURE GRAN PERCENT AUTO 0 % (0-1); LYMPHOCYTES ABSOLUTE AUTO 2.77 K/mm3 (0.84-5.20); LYMPHOCYTES PERCENT AUTO 22 % (21-46); MONOCYTES ABSOLUTE AUTO 1.24 K/mm3 (0.16-1.47); MONOCYTES PERCENT AUTO 10 % (4-13); Mean Corpuscular HGB 30.6 pg (26.0-34.0); Mean Corpuscular HGB Conc 34.5 g/dL (31.5-36.5); Mean Corpuscular Volume 89 fL (80-100); Mean Platelet Volume 10.4 fL (9.1-12.4); NEUTROPHILS ABSOLUTE AUTO 8.69 K/mm3 (1.96-9.15); NEUTROPHILS PERCENT AUTO 67 % (41-73); Platelet Count 234 K/mm3 (150-400); RDW Coefficient Variation 12.9 % (11.7-14.2); RDW Standard Deviation 41.8 fL (35.1-46.3); Red Blood Cell Count 5.45 M/mm3 (4.30-5.90)
[2021-05-09 05:37] LABS: Anion Gap 5 mmol/L (6-16); Blood Urea Nitrogen 19 mg/dL (8-24); Bun/Creatinine Ratio 25.4 (12.0-20.0); CO2, Blood 31 mmol/L (21-32); Calcium, Blood 7.9 mg/dL (8.5-10.1); Chloride, Blood 98 mmol/L (98-108); Creatinine, Blood 0.75 mg/dL (0.60-1.20); Glomerular Filtration Rate >60 (60-); Glucose, Blood 208 mg/dL (70-99); Phosphorus, Blood 3.1 mg/dL (2.5-4.9); Potassium, Blood 3.2 mmol/L (3.5-5.5); Sodium, Blood 134 mmol/L (136-145)
--- NOTE | 2021-05-09 06:04 | NUR ---
PM SHIFT SUMMARY PATIENT CONTINUES TO SOAK THE BED 5+ TIMES PER SHIFT. HE IS UNABLE TO LET US KNOW WHEN HE NEEDS TO URINATE OR HAVE A BM, AND OFTEN TIMES HE DOESN'T EVEN KNOW HE DID IT. AM SHIFT STATED IN REPORT THAT THEY HAD NOT BLADDER SCANNED HIM DUE TO THIS SAME REASON. I SCANNED HIM ONCE AND HE ONLY HAD 150ML SHOWING IN HIS BLADDER. HIS POTASSIUM THIS MORNING WAS A 3.2 . HIS BLOOD CULTURES WERE NEGATIVE AT DAY 5. HE WAS VERY PLEASANT ALL SHIFT. HE STATED THAT HE "IS NEVER GOING HOME", WHICH SADDENED HIM QUITE A BIT. WE SPOKE BRIEFLY ABOUT THE PLAN FOR HIM TO GO TO LTAC AND WHAT ONE WAS.
--- NOTE | 2021-05-09 15:39 | NUR ---
Contacted the following memory care/skilled nursing facilities: 1. [facility]ong [facility] ([place]) [phone] Left message 2. [facility] refaxed packet (have fax confirmation from 05/07, but Mary Beth states she did not receive packet-fax number confirmed [phone]) 3. [facility] follow up with Ranjith left message with Halley [phone] 4. [facility] [phone] left message 5. Elidia Snowden ([place]) Yana [phone] faxed packet; no openings today but potentially next week 6. Nadege Ramirez [facility] [phone] not accepting/at max capacity with insulin dependent clients 7. [facility] [phone] no Medicaid openings 8. [facility] no Medicaid openings 9. [facility]/Brian and Mary Beth declined due to acuity and staffing 10. [facility] Care [phone] no openings 11. [facility] [phone] private pay only Will follow up with SNF Jacqui Ott tomorrow. COVID unit is at max capacity today.
--- NOTE | 2021-05-09 15:47 | NUR ---
STUDENT ASSESSMENT I AGREE WITH AND WAS PRESENT DURING THE STUDENTS AM SHIFT ASSESSMENT
--- NOTE | 2021-05-09 16:48 | NUR ---
END OF SHIFT SUMMARY PT WAS PLEASANT THROUGHOUT THE SHIFT AND HAD NO BEHAVIORAL DISTUBANCES. PATIENT GOT OUT OF BED FOR BREAKFAST A ONE ASSIST TO THE CHAIR. DR BURDEN WAS TALKED WITH AND STARTED ORDER TO DECREASE DEXAMETHASONE AND HOPES TO START DECREASING INSULIN COVERAGE, DR WAS ALSO UPDATED ABOUT PATIENTS Q6 HR BLADDER SCANS AND AGREED TO DC BLADDER SCAN ORDER DUE TO PATIENT HAVING ADEQUATE URINE OUTPUT. STILL WAITING FOR PT TO BE ACCEPTED TO A FACILITY. JUANA CALLED TODAY AND WAS UPDATED ON PATIENTS STATUS, LIMITATIONS AND ABILITIES.
--- NOTE | 2021-05-09 16:50 | NUR ---
PT IS A/OX3, PLEASANT AND COOPERATIVE. THE PT APPEARS TO BE BREATHING EASILY ON RA TODAY O2 SAT AT 93%. PT THIS AM REPORTED BACK PAIN THE PT WAS ASSISTED TO THE CHAIR FOR BREAKFAST AND GIVEN TYLENOL. PT HAD THERAPUTIC RESULTS FROM THE TYLENOL. THE PT IS A ONE ASSIST UP TO THE CHAIR. PT HAS BEEN USEING THE URINAL TODAY. PT USES THE CALL LIGHT APROPRIATLY. CALL LIGHT IN REACH
--- NOTE | 2021-05-09 17:27 | NUR ---
ASSUMPTION OF CARE NOTE: RECEIVED REPORT FROM BARTOLO LINDSEY. PT IN BED EYES SHUT RR E/U WITH NO APPARENT SIGNS OF DISTRESS. THIS RN AGREES WITH PRIOR ASSESSMENT. BED IN LOW POSITION AND CALL LIGHT IN REACH. PT HAD BED BATH AND NYSTATIN POWDER RE-APPLIED TO RASH AREAS.
--- NOTE | 2021-05-10 07:40 | NUR ---
PATIENT'S BLOOD SUGARS HIGH AT START OF SHIFT. HUMALOG AND LONG ACTING INSULIN GIVEN TO PATIENT WITH 2ND RN CORRECTION. PATIENT INCONTINENT X3 REQUIRING 3 BED CHANGES. PATIENT ABLE TO TAKE MEDICATIONS PO AND IS ALERT AND ORIENTED X2.
--- NOTE | 2021-05-10 16:04 | NUR ---
Contacted the following [facility] [place] [facility] [place]: 1. [facility]na Sanchez [phone] left message will follow up Thursday 2. [facility] [phone] no openings 3. [facility] [phone] left message will follow up Thursday 4. [facility] [phone] no openings 5. [facility] [phone]/declined has openings but patient has to be independent 6. [facility] [phone] no openings 7. [facility] [phone] opening but cannot be a two person assist for any ADLs 8. [facility] [place] [phone]-no openings 9. [facility] [place] [phone] no openings 10. [facility] [phone]/transferred to [facility]-private pay 11. [facility] Delgado [phone] no openings 12. [facility] [phone] left message 13. Follow-up call to Mira Gray-left message for Mary Beth [phone] 14. Follow up call to Elidai Snowden [phone] left message for Yana
--- NOTE | 2021-05-10 16:54 | NUR ---
SHIFT SUMMARY PATIENT DENIES PAIN, NAUSEA, AND SHORTNESS OF BREATH. PATIENT IS A SBA FOR TRANSFERS. PATIENT IS ON ROOM AIR SATURATING AT 93%. PATIENT WORKED WITH PT TODAY. PATIENT ASKED THE SPIKE MACHINE FEEDER TO SHAVE HIS FACE. PATIENT MORNING CBG WAS 120, SHORT-ACTING INSULIN HELD. DR. KHAN NOTIFIED AND SHORT-ACTING INSULIN ADJUSTED. PATIENT IS EATING AND DRINKING WELL. PATIENT IS PLEASANT AND COOPERATIVE WITH CARE.
--- NOTE | 2021-05-10 23:03 | NUR ---
MD CALLED AT HS BLOOD GLUCOSE CHECK BECAUSE PATIENTS BLOOD GLUCOSE WAS 410. MD MANAGER BENCH RECOMMENDED FOLLOWING THE SLIDING SCALE OF ADMINISTERING HUMALOG 6 UNITS. MD ALSO CONFIRMED TO CONTINUE WITH LONG ACTING DOSE OF 50 UNITS AT HS.
--- NOTE | 2021-05-11 06:40 | NUR ---
PATIENT INCONTINENT X5 DURING SHIFT. PATIENT HAS NOT BEEN COMPLIANT WITH USING THE URINAL THEREFORE STAFF HAD TO DO FULL BED CHANGES EACH INCONTINENCE. CLIENT NON COMPLIANT WITH DIET AND DEMANDED FOOD ALL NIGHT TO STAFF. STAFF REDIRECTED PATIENT MULTIPLE TIMES WHILE PROVIDING EDUCATION WITH NO IMPROVEMENT.
--- NOTE | 2021-05-11 10:26 | NUR ---
TELEMETRY AFLUTTER WITH PVCS RATE 76 PER DECONTAMINATION WORKER.
--- NOTE | 2021-05-11 17:41 | NUR ---
ACCUCHECKS CONTINUE ELEVATED REQUIRING SLIDING SCALE COVERAGE. PATIENT CONTINUES TO YELL ASKING FOR ADDITIONAL FOOD AFTER MEALS. ATTEMPTED TO EXPLAIN THAT CAN'T BE ACCOMODATED WITH THE FOODS HE'S ASKING FOR BECAUSE OF HIS ELEVATED GLUCOSE. DIABETIC SNACK SUPPLEMENTED ONCE. ON ISOLATION PRECAUTIONS DUE TO COVID. AWAKE AND ALERT MOST OF THE DAY. INCONTINENT WITH ATTENDS ON. MEDICATED PER E-MAY. WILL MONITOR.
--- NOTE | 2021-05-12 06:17 | NUR ---
PATIENT CONTINUES TO BE AGGITATED AND FIXED ON FOOD. BLOOD SUGARS REMAIN HIGH. PATIENT PROVIDED SUGAR FREE PUDDING ALL NIGHT UPON REQUEST. PATIENT EDUCATED ON THE IMPORTANCE OF MANAGING AND IMPROVING DIABETES CARE. PATIENT CONTINUES TO BE INCONTINENT AT NIGHT AND CONTINUES TO YELL OUT AND SCREAM FOR FOOD. PATIENT HAS BEEN STABLE, NO NEW CHANGES.
--- NOTE | 2021-05-12 10:00 | NUR ---
@ 0835, SALINE LOCK INTACT L ANTECUBITAL.
--- NOTE | 2021-05-12 11:02 | NUR ---
TELE AFIB 88 PER LIFTER/DRIVER.
--- NOTE | 2021-05-12 12:04 | NUR ---
PT EVAL IN PROGRESS. IS TAKEN TO ROOM. WILL INSTRUCT PATIENT AFTER PT SESSION COMPLETED.
--- NOTE | 2021-05-12 15:53 | NUR ---
CONTINUES WITH ELEVATED ACCUCHECKS REQUIRING SLIDING SCALE COVERAGE BUT LOWER THAN YESTERDAYS RANGE. AWAKE AND ALERT. MEDICATED PER E-MAY. SAT IN CHAIR BY THE WINDOW FOR A GOOD PORTION OF THE DAY TODAY. TALKS/FACETIMES WITH FAMILY INTERMITTENTLY. ON ISOLATION PRECAUTIONS FOR COVID. TELEMETRY AND HL INTACT. TOLERATED PO FOOD AND FLUIDS. NOT REQUESTING EXTRA FOODS BETWEEN MEALS AND LESS DEMANDING COMPARED TO YESTERDAY. HARD TO UNDERSTAND VERBALLY AT TIMES DUE TO PRIOR STROKE AND GETS FRUSTRATED EASILY WHEN THAT HAPPENS. WILL MONITOR.
--- NOTE | 2021-05-12 17:17 | NUR ---
TELEMETRY REMOVED PER MD ORDER AFTER PATIENT REFUSED TO CONTINUE WEARING IT.
--- NOTE | 2021-05-13 04:01 | NUR ---
PATIENT IN BED AWAKE AND ALERT UPON ARRIVAL. NO SLIDING SCALE NEEDED AT HS DUE TO BLOOD SUGAR FOLLOWING WITHIN PARAMETERS IN MAY. PATIENT STILL PROVIDED WITH GLARGINE PER MAY. PATIENT CONTINUES TO BE INCONTINENT AT NIGHT. NO NEW CONCERNS WITH PATIENT.
--- NOTE | 2021-05-13 09:24 | NUR ---
@ 0805, HL INTACT L ANTECUBITAL.
--- NOTE | 2021-05-13 14:06 | NUR ---
REPORT GIVEN TO JAYME CASTELLANO RN/DAYSURGERY. PATIENT TRANSFERRING TO DAYSURGERY VIA BED.
--- NOTE | 2021-05-13 18:30 | NUR ---
REMAINS IN ISOLATION FOR COVID ON ROOM AIR. RESPIRATIONS UNLABORED. MEDICATED PER E-MAR. SLIDING SCALE COVERAGE NEEDED BUT LESS THAN THE LAST TWO DAYS REQUIRED COVERAGE. WAS TOLD BY THE CHARGE NURSE THAT [facility] NO C/O PAIN VOICED. REPORT WILL BE GIVEN TO ONCOMING SHIFT AT 1845.
--- NOTE | 2021-05-14 08:54 | NUR ---
@ 0818, HL INTACT L AC. IN ISOLATION DUE TO COVID.
--- NOTE | 2021-05-14 11:39 | NUR ---
MIDLINE LEFT AC REMOVED WITH JELCO INTACT. PRESSURE DRESSING APPLIED. MECHANIC WELDER'S AT BEDSIDE DRESSING PATIENT AND COLLECTING PERSONAL BELONGINGS FOR TRANSPORT TO [facility].
[2021-05-14] MEDS ORDERED: AMLO10 PO (12:12)
[2021-05-14] MEDS ORDERED: FURO20 PO (12:14)
[2021-05-14] MEDS ORDERED: HUMALOG KW100 UNIT/1 SC (12:18)
[2021-05-14] MEDS ORDERED: BASAGLAR K100 UNIT/8 SC (12:20)
[2021-05-14] MEDS ORDERED: ELIQUIS5 M2 PO (12:22)
[2021-05-14] MEDS ORDERED: NYSTATIN15 GM TOP (12:23)
[2021-05-14] MEDS ORDERED: Flomax0.4 MG PO (12:23)
--- NOTE | 2021-05-14 12:27 | NUR ---
REPORT CALLED TO ESTEE MARES LPN AT [facility] [phone]. PATIENT DISCHARGED TO [facility] PER WHEELCHAIR WITH EMT FROM [facility]. AAO X 4. NO DISTRESS NOTED AT DISCHARGE.
--- NOTE | 2021-05-14 16:59 | NUR ---
Per Dr. Crowe discharge appropriate. Patient and daughter Basia do not oppose discharge. I have communicated with daughter on discharge plan and she is aware her father's snf care placement will be [facility]. She will continue to look for memory care facility for her father. Date of discharge: 05/14/2021 Date of admission: 05/04/2021 Provisional diagnosis at time of admission: Acute hypoxic respiratory failure in setting of COVID19 Final Diagnosis at time of discharge: Acute hypoxic respiratory failure in setting of COVID19 Transportation provided by: [facility] contract services [facility] transport requested SNF Location: [address] [place] [address]/[phone] DME Ordered: None needed Follow-ups needed: [facility] KATHY will contact patient/[facility] to schedule hospital follow-up visit. Reinforced need to attend follow-up with option of telehealth appointment (COVID positive 05/03). Provider/PCP: STARR Streeter (labs) When: WITHIN 1 WEEK Specialty: N/A When: N/A Confirmed numbers: Daughter Basia [phone] Comment: In the future patient will need memory care. Explained to daughter she will need to assist with finding a memory care facility for her father eventually. Explained importance of hospital follow up with PCP. Discussed transportation coordination with [facility] and she may need to provide transportation as needed.
== END 2021-05-14 12:27 | DRG 871 ==
LOC: ER 22:29 → ICUW 05-04 03:06 → MEDS 05-05 15:10
PROVIDERS: Family Medicine; Student in an Organized Health Care Education/Training Program; ADMIT Family Medicine
PROC: 8E0ZXY6 Isolation (ICD-10-PCS; principal; 2021-05-04)
PROC: 3E0333Z Introduction of Anti-inflammatory into Peripheral Vein, Percutaneous Approach (ICD-10-PCS; 2021-05-04)
PROC: XW0DXM6 Introduction of Baricitinib into Mouth and Pharynx, External Approach, New Technology Group 6 (ICD-10-PCS; 2021-05-04)
PROC: XW033E5 Introduction of Remdesivir Anti-infective into Peripheral Vein, Percutaneous Approach, New Technology Group 5 (ICD-10-PCS; 2021-05-05)
DX: A41.89 Other specified sepsis (principal); U07.1 COVID-19; J12.82 Pneumonia due to coronavirus disease 2019; J96.01 Acute respiratory failure with hypoxia; R65.21 Severe sepsis with septic shock; I48.20 Chronic atrial fibrillation, unspecified; I50.22 Chronic systolic (congestive) heart failure; E87.1 Hypo-osmolality and hyponatremia; I25.10 Atherosclerotic heart disease of native coronary artery without angina pectoris; F32.A Depression, unspecified; Z66 Do not resuscitate; Z79.899 Other long term (current) drug therapy; I25.2 Old myocardial infarction; F41.9 Anxiety disorder, unspecified; Z87.442 Personal history of urinary calculi; Z79.01 Long term (current) use of anticoagulants; G40.909 Epilepsy, unspecified, not intractable, without status epilepticus; Z79.82 Long term (current) use of aspirin; Z95.5 Presence of coronary angioplasty implant and graft; F03.90 Unspecified dementia, unspecified severity, without behavioral disturbance, psychotic disturbance, mood disturbance, and anxiety; E11.9 Type 2 diabetes mellitus without complications; Z86.73 Personal history of transient ischemic attack (TIA), and cerebral infarction without residual deficits; E78.5 Hyperlipidemia, unspecified; Z98.890 Other specified postprocedural states; Z79.4 Long term (current) use of insulin
CPT/HCPCS: 0241U; 36415; 51702; 71045; 80048; 80053; 80069; 80162; 81001; 82947; 83605; 83735; 83880; 84145; 84443; 84484; 85025; 85610; 87040; 93005; 93010; 93306; 94760; 96374; 96375; 97110; 97116; 97163; 97166; 97530; 97535; 99285-25; A9270; C1751; C9399; J0248; J1100; J1815; J1885; J3480; J7030; J7040; J7050; J7060

== ENCOUNTER → 2022-03-25 | Outpatient (CLI) | payer MEDICARE, OTHER ==
[~2022-03-25] MED LIST changes: +ALEVAZOL56.7 G1 TOP; +AMLO10 PO; +BASAGLAR K100 UNIT/8 SC; +BUME1 PO; +DONE10 PO; +ELIQUIS5 M2 PO; +FIASP 100100 UNIT/3 SC; +FURO20 PO; +Flomax0.4 MG PO; +GLIP5 PO; +HUMALOG KW100 UNIT/1 SC; +METF500 PO; +NAMENDA XR7 MG PO; +NYSTATIN15 GM TOP; +POTCHL20ER PO; +TRIDERM28.4 GM TOP
[2022-03-25 20:21] LABS: Creatinine, Blood 0.81 mg/dL (0.60-1.20); Potassium, Blood 3.5 mmol/L (3.5-5.5)
== END | disposition home or self-care (01) ==
LOC: LAB SHORT 16:20 → LAB 16:20
PROVIDERS: Physician Assistant
DX: E11.42 Type 2 diabetes mellitus with diabetic polyneuropathy (principal); E11.69 Type 2 diabetes mellitus with other specified complication; E11.22 Type 2 diabetes mellitus with diabetic chronic kidney disease; I12.9 Hypertensive chronic kidney disease with stage 1 through stage 4 chronic kidney disease, or unspecified chronic kidney disease; N18.9 Chronic kidney disease, unspecified; Z79.4 Long term (current) use of insulin
CPT/HCPCS: 80048; 83036

== ENCOUNTER 2022-06-15 16:23 | Emergency (ER) | payer MEDICARE, OTHER ==
[~2022-06-15] VITALS: Ht 182.9 cm; Wt 99.8 kg
[2022-06-15 16:47] LABS: BASOPHILS ABSOLUTE AUTO 0.06 K/mm3 (0.00-0.23); BASOPHILS PERCENT AUTO 1 % (0-2); EOSINOPHILS ABSOLUTE AUTO 0.25 K/mm3 (0.00-0.68); EOSINOPHILS PERCENT AUTO 2 % (0-6); Hematocrit 43.6 % (37.0-53.0); Hemoglobin 14.8 g/dL (13.5-17.5); IMMATURE GRAN ABSOLUTE AUTO 0.03 K/mm3 (0.00-0.10); IMMATURE GRAN PERCENT AUTO 0 % (0-1); LYMPHOCYTES PERCENT AUTO 20 % (21-46); MONOCYTES ABSOLUTE AUTO 1.23 K/mm3 (0.16-1.47); MONOCYTES PERCENT AUTO 11 % (4-13); Mean Corpuscular HGB 30.1 pg (26.0-34.0); Mean Corpuscular HGB Conc 33.9 g/dL (31.5-36.5); Mean Corpuscular Volume 89 fL (80-100); Mean Platelet Volume 10.5 fL (9.1-12.4); NEUTROPHILS ABSOLUTE AUTO 7.09 K/mm3 (1.96-9.15); NEUTROPHILS PERCENT AUTO 66 % (41-73); Platelet Count 218 K/mm3 (150-400); RDW Coefficient Variation 13.3 % (11.7-14.2); RDW Standard Deviation 43.4 fL (35.1-46.3); Red Blood Cell Count 4.92 M/mm3 (4.30-5.90); White Blood Cell Count 10.76 K/mm3 (4.00-11.30)
[2022-06-15 16:59] LABS: Albumin, Blood 3.3 g/dL (3.4-5.0); Albumin/Globulin Ratio 0.8 (0.8-1.8); Bilirubin, Total 0.5 mg/dL (0.1-1.0); Bun/Creatinine Ratio 24.5 (12.0-20.0); Calcium, Blood 8.8 mg/dL (8.5-10.1); Creatinine, Blood 1.39 mg/dL (0.60-1.20); Globulin, Blood 3.9 g/dL (2.2-4.0); Total Protein, Blood 7.2 g/dL (6.4-8.2)
[2022-06-15 18:56] LABS: Source, Urine Clean Catch
[2022-06-15 18:59] LABS: Appearance, Urine Clear (Clear); Bilirubin, Urine Neg (Neg); Blood, Urine 5+ (Neg); Glucose Qualitative, Urine Neg (Neg); Ketones, Urine Neg (Neg); Leukocyte Esterase, Urine Neg (Neg); Nitrite, Urine Neg (Neg); Protein, Urine 1+ (Neg); Specific Gravity, Urine 1.015 (1.003-1.022); Urobilinogen, Urine NORM (Normal)
[2022-06-15 19:07] LABS: Color, Urine Pale Yellow (P-Yellow)
[2022-06-15 19:08] LABS: Bacteria Rare /hpf; Squamous Epithelial Cells Not Seen /hpf (Few); White Blood Cells, Urine 0-2 /hpf (0-5)
[2022-06-15] MEDS ORDERED: TAMS.4ER PO (19:20)
== END 2022-06-15 21:00 | disposition home or self-care (01) ==
LOC: ER 16:23
PROVIDERS: Emergency Medicine
DX: N13.2 Hydronephrosis with renal and ureteral calculous obstruction (principal); N28.9 Disorder of kidney and ureter, unspecified; E11.9 Type 2 diabetes mellitus without complications
CPT/HCPCS: 74176; 80053; 81001; 85025; A9270; J7030

== ENCOUNTER 2022-06-30 20:51 | Emergency (ER) | payer MEDICARE, OTHER ==
[~2022-06-30] VITALS: Ht 177.8 cm; Wt 99.8 kg
[~2022-06-30 20:51] MED LIST changes: +TAMS.4ER PO
[2022-06-30 21:26] LABS: BASOPHILS ABSOLUTE AUTO 0.05 K/mm3 (0.00-0.23); BASOPHILS PERCENT AUTO 1 % (0-2); EOSINOPHILS ABSOLUTE AUTO 0.13 K/mm3 (0.00-0.68); EOSINOPHILS PERCENT AUTO 1 % (0-6); Hematocrit 44.9 % (37.0-53.0); Hemoglobin 15.3 g/dL (13.5-17.5); IMMATURE GRAN ABSOLUTE AUTO 0.05 K/mm3 (0.00-0.10); IMMATURE GRAN PERCENT AUTO 1 % (0-1); LYMPHOCYTES ABSOLUTE AUTO 0.94 K/mm3 (0.84-5.20); LYMPHOCYTES PERCENT AUTO 9 % (21-46); MONOCYTES ABSOLUTE AUTO 1.11 K/mm3 (0.16-1.47); MONOCYTES PERCENT AUTO 10 % (4-13); Mean Corpuscular HGB 29.8 pg (26.0-34.0); Mean Corpuscular HGB Conc 34.1 g/dL (31.5-36.5); Mean Corpuscular Volume 88 fL (80-100); Mean Platelet Volume 10.4 fL (9.1-12.4); NEUTROPHILS ABSOLUTE AUTO 8.59 K/mm3 (1.96-9.15); NEUTROPHILS PERCENT AUTO 79 % (41-73); Platelet Count 191 K/mm3 (150-400); RDW Coefficient Variation 13.1 % (11.7-14.2); RDW Standard Deviation 42.4 fL (35.1-46.3); Red Blood Cell Count 5.13 M/mm3 (4.30-5.90); White Blood Cell Count 10.87 K/mm3 (4.00-11.30)
[2022-06-30 21:42] LABS: Albumin, Blood 3.4 g/dL (3.4-5.0); Albumin/Globulin Ratio 0.9 (0.8-1.8); Bilirubin, Total 0.8 mg/dL (0.1-1.0); Bun/Creatinine Ratio 17.6 (12.0-20.0); Calcium, Blood 9.1 mg/dL (8.5-10.1); Creatinine, Blood 1.02 mg/dL (0.60-1.20); Globulin, Blood 3.9 g/dL (2.2-4.0); Potassium, Blood 3.8 mmol/L (3.5-5.5); Total Protein, Blood 7.3 g/dL (6.4-8.2)
[2022-06-30 22:20] LABS: Magnesium, Blood 1.8 mg/dL (1.6-2.4)
[2022-06-30 22:24] LABS: Thyroid Stimulating Hormone 2.78 uIU/mL (0.360-4.800)
[2022-06-30 23:25] LABS: Influenza A, PCR NEGATIVE (NEGATIVE); Influenza B, PCR NEGATIVE (NEGATIVE); Resp Syncytial Virus, PCR NEGATIVE (NEGATIVE)
[2022-07-01] LABS: SARS-Cov-2 (COVID-19) PCR, MMC POSITIVE (NEGATIVE)
[2022-07-01] MEDS ORDERED: PAXLOVID 150-11 EACH PO (00:19)
== END 2022-07-01 00:57 | disposition home or self-care (01) ==
LOC: ER 20:51
PROVIDERS: Emergency Medicine
DX: U07.1 COVID-19 (principal); I48.91 Unspecified atrial fibrillation; I25.2 Old myocardial infarction; E11.9 Type 2 diabetes mellitus without complications; G40.909 Epilepsy, unspecified, not intractable, without status epilepticus; E78.00 Pure hypercholesterolemia, unspecified
CPT/HCPCS: 0241U; 36415; 71046; 80053; 82947; 83735; 84443; 85025; 93005; 93010; 96374; 99285-25

== ENCOUNTER → 2022-08-29 | Outpatient (CLI) | payer MEDICARE, OTHER ==
[~2022-08-29] MED LIST changes: +PAXLOVID 150-11 EACH PO
== END | disposition home or self-care (01) ==
LOC: LAB 17:30 → LAB SHORT 17:30
DX: L08.9 Local infection of the skin and subcutaneous tissue, unspecified (principal)
CPT/HCPCS: 87070; 87075; 87205

== ENCOUNTER 2022-09-19 17:51 | Observation (INO) | payer MEDICARE, OTHER ==
[~2022-09-19] VITALS: Ht 188 cm; Wt 117.6 kg
[2022-09-19 18:41] LABS: BASOPHILS ABSOLUTE AUTO 0.02 K/mm3 (0.00-0.23); BASOPHILS PERCENT AUTO 0 % (0-2); EOSINOPHILS ABSOLUTE AUTO 0.07 K/mm3 (0.00-0.68); EOSINOPHILS PERCENT AUTO 1 % (0-6); Hematocrit 42.5 % (37.0-53.0); Hemoglobin 14.8 g/dL (13.5-17.5); IMMATURE GRAN ABSOLUTE AUTO 0.03 K/mm3 (0.00-0.10); IMMATURE GRAN PERCENT AUTO 0 % (0-1); LYMPHOCYTES ABSOLUTE AUTO 0.97 K/mm3 (0.84-5.20); LYMPHOCYTES PERCENT AUTO 12 % (21-46); MONOCYTES ABSOLUTE AUTO 0.84 K/mm3 (0.16-1.47); MONOCYTES PERCENT AUTO 10 % (4-13); Mean Corpuscular HGB 30.8 pg (26.0-34.0); Mean Corpuscular HGB Conc 34.8 g/dL (31.5-36.5); Mean Corpuscular Volume 89 fL (80-100); Mean Platelet Volume 10.7 fL (9.1-12.4); NEUTROPHILS ABSOLUTE AUTO 6.12 K/mm3 (1.96-9.15); NEUTROPHILS PERCENT AUTO 76 % (41-73); Platelet Count 185 K/mm3 (150-400); RDW Coefficient Variation 13.8 % (11.7-14.2); RDW Standard Deviation 44.6 fL (35.1-46.3); White Blood Cell Count 8.05 K/mm3 (4.00-11.30)
[2022-09-19 18:43] LABS: International Normalized Ratio 1.18; Prothrombin Time Results 12.3 Sec (9.7-11.5)
[2022-09-19 18:46] LABS: Alanine Aminotransfer (ALT/SGP 42 U/L (12-78); Albumin/Globulin Ratio 0.8 (0.8-1.8); Alk Phos 79 U/L (50-136); Anion Gap 8 mmol/L (6-16); Aspartate Aminotrans (AST/SGOT 30 U/L (12-37); Bilirubin, Total 0.7 mg/dL (0.1-1.0); Blood Urea Nitrogen 22 mg/dL (8-24); Bun/Creatinine Ratio 21.6 (12.0-20.0); CO2, Blood 25 mmol/L (21-32); Calcium, Blood 8.4 mg/dL (8.5-10.1); Chloride, Blood 98 mmol/L (98-108); Creatinine, Blood 1.02 mg/dL (0.60-1.20); Globulin, Blood 3.8 g/dL (2.2-4.0); Glomerular Filtration Rate 79 (60-); Glucose, Blood 325 mg/dL (70-99); Potassium, Blood 3.6 mmol/L (3.5-5.5); Sodium, Blood 131 mmol/L (136-145); Total Protein, Blood 6.8 g/dL (6.4-8.2)
[2022-09-19 23:27] VITALS: BP 161/102
[2022-09-20 00:15] LABS: Digoxin (Lanoxin) 0.35 ug/mL (0.80-2.00)
[2022-09-20] MEDS ORDERED: BUME1 PO (00:22)
[2022-09-20] MEDS ORDERED: CHLO25B PO (00:23)
[2022-09-20 03:29] VITALS: BP 109/56
[2022-09-20 04:54] LABS: BASOPHILS ABSOLUTE AUTO 0.02 K/mm3 (0.00-0.23); BASOPHILS PERCENT AUTO 0 % (0-2); EOSINOPHILS ABSOLUTE AUTO 0.13 K/mm3 (0.00-0.68); EOSINOPHILS PERCENT AUTO 2 % (0-6); Hematocrit 40.8 % (37.0-53.0); Hemoglobin 14.1 g/dL (13.5-17.5); IMMATURE GRAN ABSOLUTE AUTO 0.02 K/mm3 (0.00-0.10); IMMATURE GRAN PERCENT AUTO 0 % (0-1); LYMPHOCYTES ABSOLUTE AUTO 1.51 K/mm3 (0.84-5.20); LYMPHOCYTES PERCENT AUTO 22 % (21-46); MONOCYTES ABSOLUTE AUTO 0.96 K/mm3 (0.16-1.47); MONOCYTES PERCENT AUTO 14 % (4-13); Mean Corpuscular HGB 30.6 pg (26.0-34.0); Mean Corpuscular HGB Conc 34.6 g/dL (31.5-36.5); Mean Corpuscular Volume 89 fL (80-100); Mean Platelet Volume 10.6 fL (9.1-12.4); NEUTROPHILS PERCENT AUTO 61 % (41-73); Platelet Count 165 K/mm3 (150-400); RDW Coefficient Variation 13.7 % (11.7-14.2); RDW Standard Deviation 44.3 fL (35.1-46.3); Red Blood Cell Count 4.61 M/mm3 (4.30-5.90); White Blood Cell Count 6.84 K/mm3 (4.00-11.30)
[2022-09-20 05:17] LABS: Alanine Aminotransfer (ALT/SGP 35 U/L (12-78); Albumin, Blood 2.8 g/dL (3.4-5.0); Albumin/Globulin Ratio 0.8 (0.8-1.8); Alk Phos 83 U/L (50-136); Anion Gap 8 mmol/L (6-16); Aspartate Aminotrans (AST/SGOT 26 U/L (12-37); Bilirubin, Total 0.6 mg/dL (0.1-1.0); Blood Urea Nitrogen 19 mg/dL (8-24); Bun/Creatinine Ratio 17.6 (12.0-20.0); CO2, Blood 27 mmol/L (21-32); Calcium, Blood 7.9 mg/dL (8.5-10.1); Chloride, Blood 102 mmol/L (98-108); Creatinine, Blood 1.08 mg/dL (0.60-1.20); Globulin, Blood 3.5 g/dL (2.2-4.0); Glomerular Filtration Rate 74 (60-); Glucose, Blood 272 mg/dL (70-99); Potassium, Blood 3.2 mmol/L (3.5-5.5); Sodium, Blood 137 mmol/L (136-145); Total Protein, Blood 6.3 g/dL (6.4-8.2)
--- NOTE | 2022-09-20 05:30 | NUR ---
SHIFT SUMMARY PT IS A&OX2 AND PLEASANT. PT ARRIVED FROM ED AT 2315. PT WAS ORIENTED TO ROOM. NO C/O PAIN. PT HAS DIFFICULTY TURNING IN BED INDEPENDENTLY BUT PREFERS TO SLEEP ON SIDE. ASSISTANCE WAS GIVEN SEVERAL TIMES T/O NIGHT TO HELP PT TURN. PT DID NOT USE CALL LIGHT BUT WOULD CALL OUT FOR HELP. PT HAS LEFT FACIAL DROOP WHEN ASKED TO SMILE. SOME MILD LEFT SIDED DEFICITS NOTED BUT PT HAS NEARLY EQUEAL STRENGTH TO RIGHT THE SIDE. PT IS INCONTINET AND PT AND BED NEEDED A COMPLETE LINEN CHANGE TWICE DURING THE NIGHT. WALKED WITH PT UP TO ROOM BUT DID NOT STAY. BED IN LOWEST POSITION AND CALL LIGHT WITHIN REACH. BED ALARM ACTIVATED.
--- NOTE | 2022-09-20 08:00 | NUR ---
PT PLEASANT A/O X2-3, DENIES PAIN. MIN LEFT FACIAL DROOP WITH SMILE. LEFT INTERNATIONAL STUDENT COUNSELOR SOME LESS STRONG. PT STATES IS BASELINE. ABLE TO STAND AND AMBULATE FEW STEPS WITH FWW. H/R IRREG, NO MURMUR NOTED. PER TELE AFIB 101 W/ PVC'S. LUNGS CLEAR, RESP EASY, UNLABORED. ON R/A/ BT X4 LAST BM NOT KNOWN BY PT. VOIDS HEAVY. EXTRA PAD IN PLACE. ABLE TO AMBULATE TO BATHROOM 1 ASST. FWW. BED IN LOW POSITION, CALL LITE IN REACH. BED ALARM ON FOR SAFETY
[2022-09-20 08:33] VITALS: BP 146/83
--- NOTE | 2022-09-20 11:27 | NUR ---
RN said to wait till dinner for next blood sugar check. Skipped lunch blood sugar check.
--- NOTE | 2022-09-20 11:44 | NUR ---
DR GOINS IN ROOM THIS AM. REQUEST HOLD MEDS UNTIL DONE SEEING PT. AFTER DONE, HOLDING K+, RAYNA, JESUSTIC.
--- NOTE | 2022-09-20 11:57 | NUR ---
1000 PT GETTOMG THERAPY, H/R KUP TO 150'S PER TELE. SETTLED BACK DOWN TO 120'S SITTING, DISCUSSED WITHI DR GOINS WHEN IN ROOM. NO NEW ORDERS.
[2022-09-20 15:02] VITALS: BP 132/84
[2022-09-20] MEDS ORDERED: ASPI81CH PO (15:25)
--- NOTE | 2022-09-20 16:24 | NUR ---
CALLED DISCHARGE REPORT TO [facility]. FAXED MED LIST. ARRANGED TRANSPORT. CALLED FAMILY. [facility] CALLED BACK. DO NOT TAKE [facility] OVER WEEKEND. CALLED DR SIMA, TRANSPORT. ADVISED ACTIVE DIRECTORY ADMINISTRATOR.
--- NOTE | 2022-09-20 16:32 | NUR ---
PT DENIES SMOKING, DENIES ANY IGNITABLE SOURCE.
--- NOTE | 2022-09-20 18:29 | NUR ---
PT PLEASANT TODAY, CONTINUES TO BE WEAK ON LEFT, STATES BACK TO BASELINE. SON IN TO VISIT TODAY AND STATES IS BACK TO BASELINE ALSO. PT WAS TO BE DISCHARGED, PAPERS DONE. REPORT CALLED AND [facility] STATES NOT ACCEPTING [facility] OVER WEEKEND. CALLED DR GOINS TO NOTIFY, [facility]. ALSO, PT CBG 382, AND [facility] FOR . NO OTHER NEW CONCERNS NOTED. BED IN LOW POSITION, CALL LITE IN REACH, BED ALARM ON FOR SAFETY
[2022-09-20 19:52] VITALS: BP 140/70
[2022-09-21 02:13] VITALS: BP 139/84
[2022-09-21 04:00] LABS: BASOPHILS ABSOLUTE AUTO 0.02 K/mm3 (0.00-0.23); BASOPHILS PERCENT AUTO 0 % (0-2); EOSINOPHILS PERCENT AUTO 5 % (0-6); Hematocrit 38.6 % (37.0-53.0); Hemoglobin 13.2 g/dL (13.5-17.5); IMMATURE GRAN ABSOLUTE AUTO 0.04 K/mm3 (0.00-0.10); IMMATURE GRAN PERCENT AUTO 1 % (0-1); LYMPHOCYTES ABSOLUTE AUTO 1.81 K/mm3 (0.84-5.20); LYMPHOCYTES PERCENT AUTO 22 % (21-46); MONOCYTES ABSOLUTE AUTO 1.12 K/mm3 (0.16-1.47); MONOCYTES PERCENT AUTO 14 % (4-13); Mean Corpuscular HGB 30.6 pg (26.0-34.0); Mean Corpuscular HGB Conc 34.2 g/dL (31.5-36.5); Mean Corpuscular Volume 90 fL (80-100); Mean Platelet Volume 10.3 fL (9.1-12.4); NEUTROPHILS ABSOLUTE AUTO 4.85 K/mm3 (1.96-9.15); NEUTROPHILS PERCENT AUTO 59 % (41-73); Platelet Count 163 K/mm3 (150-400); RDW Coefficient Variation 13.8 % (11.7-14.2); RDW Standard Deviation 45.3 fL (35.1-46.3); Red Blood Cell Count 4.31 M/mm3 (4.30-5.90); White Blood Cell Count 8.24 K/mm3 (4.00-11.30)
[2022-09-21 04:22] LABS: Bun/Creatinine Ratio 19.2 (12.0-20.0); Calcium, Blood 8.1 mg/dL (8.5-10.1); Creatinine, Blood 0.99 mg/dL (0.60-1.20); Potassium, Blood 3.4 mmol/L (3.5-5.5)
--- NOTE | 2022-09-21 05:08 | NUR ---
SHIFT SUMMARY PT IS A&OX2 AND PLEASANT. PT WAS AWAKE ON AND OFF THROUGHOUT NIGHT. PT HAD DIFFICULTY GETTING COMFORTABLE IN THE BED. PT HELPED WITH REPOSITIONING, CALMING MUSIC, ROOM THERMOSTATE ADJUSTMENTS, AND FAN T/O NIGHT. PT DID NOT USE CALL LIGHT BUT INSTEAD HOLLARS OUT FOR HELP. EVENING BG WAS 373. INSULIN GIVEN PER EMAR AND DR. LOPEZ NOTIFIED VIA TELEPHONE. NO ORDERS GIVEN AT THAT TIME. PT REMINDED OF NO SMOKING POLICY AND FIRE SAFETY. BED IN LOWEST POSITION AND CALL LIGHT IN REACH WITH CONTINUED REMINDER ON HOW TO USE CALL LIGHT. BED ALARM ON FOR SAFETY.
[2022-09-21 08:27] VITALS: BP 173/88
[2022-09-21 16:34] VITALS: BP 147/98
--- NOTE | 2022-09-21 16:36 | NUR ---
SHIFT SUMMARY PATIENT IS ALERT AND ORIENTED X2. PATIENT HAS HAD NO ACUTE EVENTS THIS SHIFT. VITAL SIGNS REVIEWED. PATIENT WORKED WITH THERAPY WELL. PATIENT IS PLANNING ON BEING DISCHARGED BACK TO HOME TOMORROW. MEDICALLY STABLE. PATIENT HAS NOT COMPLAINED OF PAIN, NAUSEA, SOB OR VOMITTING. BED ALARM HAS BEEN ON ALL SHIFT. PATIENTS CBG HAS BEEN ELEVATED. BED IN LOCKED AND LOWEST POSITION. CALL LIGHT IN PLACE. WILL MONITOR UNTIL SHIFT CHANGE.
--- NOTE | 2022-09-21 17:58 | NUR ---
NURSE NOTE PATIENT WAS EDUCATED AND ASSESSED FOR FIRE RISK
[2022-09-21 19:33] VITALS: BP 145/100
[2022-09-22 02:32] VITALS: BP 163/89
--- NOTE | 2022-09-22 05:04 | NUR ---
SHIFT SUMMARY PT A&OX2 AND PLEASANT. AT BEDSIDE FOR A SHORT TIME IN EVENING. PT'S BED WAS SWITCHED OUT AT BEGINING OF SHIFT FOR A LONGER BED. PT HAD DIFFICULTY FALLING ASLEEP DURING THE NIGHT BUT FINALLY FELL ASLEEP AT ABOUT 0330. AT ONE POINT PT ASKED TO SIT UP IN RECLINER BUT WAS ALSO UNABLE TO SLEEP IN CHAIR. PT HELPED BACK TO BED. PT WAS ABLE TO AMBULATE TO BATHROOM DURING THE NIGHT. NO ACUTE EVENTS DURING SHIFT. PLAN IS TO DC BACK TO [place] TODAY. PT REMINDED OF POSSIBLE SOURCES OF IGNITION AND FIRE DANGERS. PT CALLS OUT TO [facility] FOR NEEDS. BED IN LOWEST POSITION AND CALL LIGHT IN REACH.
[2022-09-22 06:01] LABS: Bun/Creatinine Ratio 17.3 (12.0-20.0); Calcium, Blood 8.3 mg/dL (8.5-10.1); Creatinine, Blood 1.04 mg/dL (0.60-1.20); Potassium, Blood 3.3 mmol/L (3.5-5.5)
[2022-09-22 07:14] VITALS: BP 146/89
--- NOTE | 2022-09-22 08:08 | NUR ---
pt laying in bed, a bit irritable about being disturbed this am states he just wants to sleep, states he knows where he is but cant say where, follows some commands, lungs are clear, dim in bases, on r/a, resp even and unlabored, no cough noted, hrirr, tele in place running afib per monitor, see strip, no edema noted, ppp+1, cap refill <3 sec, vs stable, afebrile, piv site to lfa site is clear and patent, btx3, abd flat soft nontender, incont of urine briefs in place, skin has pink bottom, preventative mepilex in place, maew, weak, linda, call light in reach.
--- NOTE | 2022-09-22 09:48 | NUR ---
pt yelled at nurse on entering room, states he wants to be left alone and . attempted to speak with him, and encourage him, he would not hear it, or cooperate, would not allow this science writer to scan his arm band, and prepare medications, states he doesn't want them. call light in reach.
--- NOTE | 2022-09-22 11:07 | NUR ---
pt called out, when entered room pt is attempting to sit himself up, is calm and states he will do what ever we would like him to. ate his breakfast, assisted him to the chair, warmed up his cream of wheat and he took his po meds and insulin. call light in reach.
--- NOTE | 2022-09-22 12:04 | NUR ---
pt has been discharged back to [facility], packet sent with transport, iv removed intact, left via wheelchair with transport taking him out.
== END 2022-09-22 12:13 | disposition home or self-care (01) ==
LOC: ER 17:51 → MEDS 17:52 → ENPENDDIS 09-20 15:43 → MEDS 09-22 12:13
PROVIDERS: Emergency Medicine; Family Medicine; ADMIT Internal Medicine
DX: G45.9 Transient cerebral ischemic attack, unspecified (principal); I69.354 Hemiplegia and hemiparesis following cerebral infarction affecting left non-dominant side; E11.65 Type 2 diabetes mellitus with hyperglycemia; I42.9 Cardiomyopathy, unspecified; E86.0 Dehydration; E87.6 Hypokalemia; R62.7 Adult failure to thrive; F03.90 Unspecified dementia, unspecified severity, without behavioral disturbance, psychotic disturbance, mood disturbance, and anxiety; I48.91 Unspecified atrial fibrillation; I25.2 Old myocardial infarction; E78.5 Hyperlipidemia, unspecified; G40.909 Epilepsy, unspecified, not intractable, without status epilepticus; Z66 Do not resuscitate; Z88.8 Allergy status to other drugs, medicaments and biological substances; Z79.01 Long term (current) use of anticoagulants; Z79.4 Long term (current) use of insulin; Z79.899 Other long term (current) drug therapy
CPT/HCPCS: 36415; 70450; 70496; 70498; 80048; 80053; 80162; 82947; 85025; 85610; 85730; 93005; 93010; 96365; 96366; 97110; 97116; 97162; 99285-25; A9270; G0378; J1815; J3480; J7050; Q9967

== ENCOUNTER → 2022-11-11 | Outpatient (CLI) | payer MEDICARE, OTHER ==
[~2022-11-11] MED LIST changes: +CHLO25B PO
[2022-11-11 21:40] LABS: Bun/Creatinine Ratio 27.7 (12.0-20.0); Calcium, Blood 8.8 mg/dL (8.5-10.1); Creatinine, Blood 0.87 mg/dL (0.60-1.20); Potassium, Blood 3.2 mmol/L (3.5-5.5)
== END | disposition home or self-care (01) ==
LOC: LAB SHORT 15:12 → LAB 15:12
PROVIDERS: Physician Assistant
DX: E11.65 Type 2 diabetes mellitus with hyperglycemia (principal)
CPT/HCPCS: 80048; 83036

== ENCOUNTER → 2023-08-24 | Outpatient (CLI) | payer MEDICARE, OTHER ==
[2023-08-24 17:15] LABS: Source, Urine Clean Catch
[2023-08-24 18:48] LABS: Appearance, Urine Clear (Clear); Bilirubin, Urine Neg (Neg); Blood, Urine 2+ (Neg); Color, Urine Yellow (P-Yellow); Glucose Qualitative, Urine 4+ (Neg); Ketones, Urine 1+ (Neg); Leukocyte Esterase, Urine Neg (Neg); Nitrite, Urine Neg (Neg); Protein, Urine 1+ (Neg); Urobilinogen, Urine NORM (Normal)
[2023-08-24 18:57] LABS: Bacteria Rare /hpf; Squamous Epithelial Cells Rare /hpf (Few); White Blood Cells, Urine 0-2 /hpf (0-5)
== END ==
LOC: LAB 17:12 → LAB SHORT 17:12
PROVIDERS: Physician Assistant
DX: N39.0 Urinary tract infection, site not specified (principal)
CPT/HCPCS: 81001; 87086

== ENCOUNTER → 2024-03-02 | Outpatient (CLI) | payer MEDICARE, OTHER ==
[~2024-03-02] MED LIST changes: +ACET500 PO; +NOVOLOG FL100 UNIT/3 SC
[2024-03-02 15:40] LABS: Anion Gap 14 mmol/L (3-11); Blood Urea Nitrogen 17 mg/dL (8-24); Bun/Creatinine Ratio 20.1 (12.0-20.0); CO2, Blood 26 mmol/L (21-32); Calcium, Blood 8.9 mg/dL (8.5-10.1); Chloride, Blood 96 mmol/L (98-108); Creatinine, Blood 0.85 mg/dL (0.60-1.20); Glomerular Filtration Rate 93 (60-); Glucose, Blood 348 mg/dL (70-99); Phosphorus, Blood 2.9 mg/dL (2.5-4.9); Potassium, Blood 3.3 mmol/L (3.5-5.5); Sodium, Blood 133 mmol/L (136-145)
[2024-03-02 16:33] LABS: Microalb/Creat Ratio UR, Rand 1261.36 mg/g (0.000-30.000)
== END | disposition home or self-care (01) ==
LOC: LAB SHORT 13:54 → LAB 13:54
PROVIDERS: Internal Medicine Endocrinology, Diabetes & Metabolism
DX: E11.65 Type 2 diabetes mellitus with hyperglycemia (principal)
CPT/HCPCS: 80069; 82043; 82570

== ENCOUNTER 2024-04-22 14:54 | Inpatient (IN) | payer MEDICARE, OTHER ==
[2024-04-22] VITALS (9 sets, daily range): BP systolic 144–181; BP diastolic 110–138
[~2024-04-22] VITALS: Ht 188 cm; Wt 117.2 kg
[2024-04-22] MEDS ORDERED: MOUNJARO2.5 MG/0.5 SQ (15:22)
[2024-04-22] MEDS ORDERED: ELIQUIS5 M3 PO (15:23)
[2024-04-22 15:24] LABS: BASOPHILS ABSOLUTE AUTO 0.08 K/mm3 (0.00-0.23); BASOPHILS PERCENT AUTO 1 % (0-2); EOSINOPHILS ABSOLUTE AUTO 0.16 K/mm3 (0.00-0.68); EOSINOPHILS PERCENT AUTO 2 % (0-6); Hemoglobin 19.1 g/dL (13.5-17.5); IMMATURE GRAN ABSOLUTE AUTO 0.04 K/mm3 (0.00-0.10); IMMATURE GRAN PERCENT AUTO 0 % (0-1); LYMPHOCYTES ABSOLUTE AUTO 1.88 K/mm3 (0.84-5.20); LYMPHOCYTES PERCENT AUTO 17 % (21-46); MONOCYTES ABSOLUTE AUTO 0.91 K/mm3 (0.16-1.47); MONOCYTES PERCENT AUTO 8 % (4-13); Mean Corpuscular HGB 29.8 pg (26.0-34.0); Mean Corpuscular HGB Conc 33.6 g/dL (31.5-36.5); Mean Corpuscular Volume 89 fL (80-100); Mean Platelet Volume 10.4 fL (9.1-12.4); NEUTROPHILS ABSOLUTE AUTO 7.75 K/mm3 (1.96-9.15); NEUTROPHILS PERCENT AUTO 72 % (41-73); Platelet Count 220 K/mm3 (150-400); RDW Coefficient Variation 13.7 % (11.7-14.2); RDW Standard Deviation 44.1 fL (35.1-46.3); Red Blood Cell Count 6.41 M/mm3 (4.30-5.90); White Blood Cell Count 10.82 K/mm3 (4.00-11.30)
[2024-04-22 15:31] LABS: Hematocrit 56.9 % (37.0-53.0)
[2024-04-22] MEDS ORDERED: Nitroglycerin 0.4 MG SUBL SL PRN (16:30)
[2024-04-22] MEDS ORDERED: Nitroglycerin/D5W 250 ML IV SCH (16:30)
[2024-04-22 16:34] LABS: Albumin, Blood 3.2 g/dL (3.4-5.0); Albumin/Globulin Ratio 0.7 (0.8-1.8); Bilirubin, Total 1.3 mg/dL (0.1-1.0); Calcium, Blood 8.9 mg/dL (8.5-10.1); Creatinine, Blood 1.15 mg/dL (0.60-1.20); Globulin, Blood 4.5 g/dL (2.2-4.0); Potassium, Blood 3.6 mmol/L (3.5-5.5); Total Protein, Blood 7.7 g/dL (6.4-8.2)
[2024-04-22] MEDS ORDERED: Diltiazem HCl 5 MG / ML 5ML Vial IV ONE (17:15)
[2024-04-22] MEDS ORDERED: FLU VACC TS2024-25(6MOS UP)/PF 45 MCG/0.5 ML SYRINGE IM SCH (17:40)
[2024-04-22] MEDS ORDERED: Clopidogrel Bisulfate 300 MG Cap PO ONE (17:45)
[2024-04-22] MEDS ORDERED: Metoprolol Succinate 50 MG TABCR PO SCH (18:00)
[2024-04-22] MEDS ORDERED: Digoxin 0.125 MG Tab PO SCH (18:00)
[2024-04-22] MEDS ORDERED: Losartan Potassium 50 MG Tab PO SCH (18:00)
[2024-04-22 19:13] LABS: International Normalized Ratio 1.17; Prothrombin Time Results 12.4 Sec (9.7-11.5)
[2024-04-22] MEDS ORDERED: Heparin Sodium,Porcine/0.5 NS 500 ML IV SCH (20:00)
[2024-04-23] VITALS (13 sets, daily range): BP systolic 140–170; BP diastolic 79–137
[2024-04-23] MEDS ORDERED: Cyclobenzaprine HCl 10 MG Tab PO ONE (00:20)
[2024-04-23] MEDS ORDERED: Acetaminophen 325 MG TABLET PO PRN (00:20)
[2024-04-23 04:14] LABS: Hematocrit 53.7 % (37.0-53.0); Hemoglobin 18.4 g/dL (13.5-17.5); Mean Corpuscular HGB Conc 34.3 g/dL (31.5-36.5); Mean Corpuscular Volume 88 fL (80-100); Mean Platelet Volume 10.6 fL (9.1-12.4); Platelet Count 215 K/mm3 (150-400); RDW Coefficient Variation 13.7 % (11.7-14.2); RDW Standard Deviation 43.6 fL (35.1-46.3); Red Blood Cell Count 6.13 M/mm3 (4.30-5.90); White Blood Cell Count 12.81 K/mm3 (4.00-11.30)
[2024-04-23] MEDS ORDERED: Dose Adjust by Pharmacy XX STA ×2 (04:40→11:24)
[2024-04-23] MEDS ORDERED: Heparin Sodium 5000 Units/ML 1ML MDV IV ONE (04:40)
[2024-04-23 04:42] LABS: Albumin/Globulin Ratio 0.7 (0.8-1.8); Bilirubin, Total 0.9 mg/dL (0.1-1.0); Bun/Creatinine Ratio 18.7 (12.0-20.0); Calcium, Blood 8.8 mg/dL (8.5-10.1); Creatinine, Blood 0.86 mg/dL (0.60-1.20); Globulin, Blood 4.1 g/dL (2.2-4.0); Potassium, Blood 3.3 mmol/L (3.5-5.5); Total Protein, Blood 7.1 g/dL (6.4-8.2)
[2024-04-23] MEDS ORDERED: Potassium Chloride 40 MEQ IV ONE (05:35)
[2024-04-23] MEDS ORDERED: Potassium Chloride 20 MEQ TabCR PO ONE (05:35)
--- NOTE | 2024-04-23 05:40 | NUR ---
SHIFT SUMMARY NEURO: PT ALERT TO PLACE AND SELF. PERRLA. EQUAL STRENGTH. AT BASELINE DECONDITIONED STRENGTH PER FAMILY. FORGETFUL. LITTLE TO NO SLEEP THIS SHIFT. CARDIAC: PT ARRIVED FROM ER ON 10 OF CARDIZEM IN AFIB RVR. CARDIZEM NOW OFF, HEPARIN GTT RUNNING. TROPONINS NOT YET PEAKED. NO C/O CP, SOB, DIAPHORESIS. HIGH DIASTOLIC PRESSURES. PVC'S AND 13 BEAT RUN OF VTACH. PULSES PRESENT IN ALL EXTREMETIES. +1 BLE EDEMA. CARDIOLOGY CONSULT CALLED. MAG ORDERED. POTASSIUM REPLACMENT IN PROGRESS. LUNGS: WNL GI/: MANWICK IN PLACE. ANTWAN URINE. BM THIS SHIFT. NPO SINCE MIDNIGHT. SKIN: SMALL FISSURES/EXCORIATION ON BILATERAL BUTTOCKS. PT AND FAMILY REPORTS THEY TAKE A GLP1 BUT UNSURE OF OTHER MEDICATIONS.
[2024-04-23] MEDS ORDERED: Potassium Chloride 40 MEQ in NS 250 ML IV ONE (06:00)
[2024-04-23] MEDS ORDERED: Clopidogrel Bisulfate 75 MG Tab PO SCH (09:00)
--- NOTE | 2024-04-23 10:43 | NUR ---
UPDATE: THIS RN UPDATED FAMILY ON PLAN OF CARE
[2024-04-23] MEDS ORDERED: Metoprolol Tartrate 1 MG/ML 5 ML VIAL IV PRN (11:20)
[2024-04-23] MEDS ORDERED: Metoprolol Tartrate 1 MG/ML 5 ML VIAL IV ONE (13:30)
[2024-04-23] MEDS ORDERED: Metoprolol Succinate 50 MG TABCR PO ONE (15:05)
[2024-04-23] MEDS ORDERED: Digoxin 0.125 MG Tab PO ONE ×2 (15:55→16:00)
[2024-04-23] MEDS ORDERED: Labetalol HCL 100 MG TAB PO SCH ×2 (15:55→16:00)
--- NOTE | 2024-04-23 17:05 | NUR ---
Pt's family at bedside, daughter Pina is en route, and she is POA. Spoke to her by phone, she is ready for comfort care, with the plan to discharge the patient back to [facility] with hospice. Orders approved by Dr. Martin.
[2024-04-23] MEDS ORDERED: LORazepam 1 MG Tab PO PRN (17:10)
[2024-04-23] MEDS ORDERED: Atropine Sulfate 1% Opth Soln 2ML BTL SL PRN (17:10)
[2024-04-23] MEDS ORDERED: LORazepam 2 MG/ML 1ML Injection IV PRN (17:10)
[2024-04-23] MEDS ORDERED: Scopolamine Hydrobromide Patch TOP PRN (17:10)
[2024-04-23] MEDS ORDERED: Morphine Sulfate 10 MG/ML 1MLSYR IV PRN (17:10)
[2024-04-23] MEDS ORDERED: Haloperidol Lactate Inj. 5 MG/ML Injection IV PRN (17:10)
[2024-04-23] MEDS ORDERED: Morphine Sulfate 20 MG/1ML 1 ML Oral Syringe SL PRN (17:10)
--- NOTE | 2024-04-23 17:14 | NUR ---
Bedside RN talking with family regarding treatment of cardiac symptoms/arrhythmia prior to discontinuing more medications.
--- NOTE | 2024-04-23 17:40 | NUR ---
SHIFT NOTE: THIS RN SPOKE TO FAMILY REGARDING WISHES ON CARDIAC MEDICATIONS. FAMILY WOULD LIKE THE AMIO BOLUS GIVEN. PT MEDICATED PER EMAR FOR PAIN AND ANXIETY. HE IS NOW RESTING COMFORTABLY WITH FAMILY AT BEDSIDE. WORK OF BREATHING HAS DECREASED WITH THE DOSE OF MORPHINE. WILL CONTINUE TO MONITOR AND PROVIDE CARE.
[2024-04-23] MEDS ORDERED: Tamsulosin HCl 0.4 MG Cap PO SCH (21:00)
[2024-04-23] MEDS ORDERED: LamoTRIgine 100 MG Tab PO SCH (21:00)
--- NOTE | 2024-04-24 08:31 | NUR ---
PATIENT ASLEEP AND MOUTH BREATHING UPON ENTERING THE ROOM. PATIENT DOES NOT SHOW ANY SIGNS OF DISTRESS OR BEING IN PAIN. DOES MOVE WHEN BEING TOUCHED AND SLIGHTLY OPENS EYELIDS WHEN BEING TALKED TO. FAMILY IS AT BEDSIDE.
[2024-04-24] MEDS ORDERED: Sertraline HCl 100 MG Tab PO SCH (09:00)
[2024-04-24] MEDS ORDERED: Apixaban 5 MG Tab PO SCH (09:00)
[2024-04-24] MEDS ORDERED: Bumetanide 1 MG Tab PO SCH (09:00)
[2024-04-24] MEDS ORDERED: Potassium Chloride 20 MEQ TabCR PO SCH (09:00)
--- NOTE | 2024-04-24 09:52 | NUR ---
NO MEDICAITONS GIVEN: THIS RN DID NOT GIVE PATIENT SCHEDULED MEDICATIONS PATIENT WAS NOT ALERT AND AWAKE ENOUGH. PATIENT WOULD OPEN EYES NEEDING A STERNAL RUB BUT WAS NOT KEEPING EYES OPEN LONG ENOUGH.
--- NOTE | 2024-04-24 11:19 | NUR ---
MD TO BEDSIDE: MD SPOKE TO NURSE THAT SHE WENT TO BEDSIDE AND DISCONTINUED HIS MEDICATIONS AND CANCELLED HIS ECHO. WE WILL CONTINUE TO TREAT THE AIR HUNGER AND SECRETIONS.
--- NOTE | 2024-04-24 12:04 | NUR ---
PALLIATIVE CARE VISIT: MET WITH FAMILY IN PATIENT ROOM. PATIENT IS IN BED RR E/U, LIGHTLY SNORING. FLACC 0/10. PT IS NOT WEARING OXYGEN. FAMILY REPORT HE DOES NOT WANT TO WEAR HIS OXYGEN. DISCUSSED MANAGEMENT OF SOB TO BE DONE WITH MEDICATIONS ROXANOL AND ATIVAN NEEDED AT THIS TIME TO SUPPORT PATIENTS WISHES NOT TO WEAR OXYGEN. ANSWERED FAMILIES QUESTIONS ABOUT CONCERNS WITH MEDICATIONS. FAMILY ARE IN AGREEMENT AT THIS TIME TO USE THE ROXANOL AND ATIVAN NEEDED TO KEEP PATIENT COMFORTABLE EVEN IF IT CAUSES PATIENT TO BE SLEEPY. PROVIDED ENCOURAGEMENT AND EMOTIONAL SUPPORT TO FAMILY.
--- NOTE | 2024-04-24 14:56 | NUR ---
PATIENT AWAKE AND ANSWERING QUETIONS WHEN ASKED BY FAMILY AND THIS RN. THIS RN GAVE MEDICATIONS PER EMAR PATIENTS RESPIRATORY RATE WAS ELEVATED. PATIENT IS COOPERATIVE AND LISTENING TO MUSIC WITH DAUGHTERS & FAMILY AT BEDSIDE.
--- NOTE | 2024-04-24 17:09 | NUR ---
shift summary: PATIENT BECAME ALERT THROUGH SHIFT WITH TOUCH, PAIN OR OCCASOINAL STERNAL RUBS. PATIENT WAS MEDICATED THROUHGOUT SHIFT PER EMAR FOR ANXIETY AND AIR HUNGER. PATIENT FAMILY WAS AT BEDSIDE THORUGHOUT THE ENTIRE SHIFT AND WAS NOTIFIED THAT PATIENT WILL BE MOVING TO MEDICAL FLOOR ONCE A BED BECOMES AVAILABLE. THIS RN WILL CONTINUE TO MONITOR RESPIRATORY RATE, AIR HUNGER AND ANXIETY UNTIL SHIFT CHANGE AND CHISEL TRIMMER RN TAKES OVER CARE.
--- NOTE | 2024-04-24 18:27 | NUR ---
pt arrived to 364 via bed from pcu, report obtained from nurse in pcu, pt opened eyes once, report is that he is not taking po at all at this point, hrirr, no edema noted, piv to lac site is clear and patent, mouth breathing, lungs are course t/o, call light in reach.
--- NOTE | 2024-04-24 18:31 | NUR ---
TRANSFER SUMMARY: PATIENT WAS TRANSFERED VIA BED WITH ALL PERSONAL BELONGINGS AND FAMILY ALONGSIDE. PATIENT WAS NOTIFIED WHEN HE WOKE UP PRIOR TO LEAVING PCU. PATIENT WAS COMFORTABLE AND NOT SHOWING ANY SIGNS OF DISCOMFORT OR PAIN.
--- NOTE | 2024-04-25 06:34 | NUR ---
SHIFT SUMMARY: Pt is admitted for NSTEMI and is a DNR. is on comfort care. Has mainly been alert to pain stimuli but has had a couple times that been able to express needs. ADLs have been mostly 2p. Pain, air hunger and restlessness have been managed with PRN medication.
--- NOTE | 2024-04-25 10:24 | NUR ---
TRANSFERRED PT OUT OF BED INTO CHAIR USING A FWW AND GAIT BELT. HE IS NON WEIGHT BEARING ON RIGHT FOOT. WITHIN A HALF HOUR, PATIENT COMPLAINED OF DIZZY SPELLS AND DISCOMFORT FROM SITTING IN CHAIR. WE TRANSFERRED HIM BACK TO BED.
--- NOTE | 2024-04-25 15:41 | NUR ---
SHIFT SUMMARY MR DENISE OPENS HIS EYES TO VOICE SOMETIMES. HE IS RESTING IN BED, RESPIRATIONS DEEP, ABDOMINAL BREATHER. THERE HAS BEEN SUPPORTIVE FAMILY PRESENCE THERE THE ENTIRE SHIFT. THEY HAVE SAID THAT THEY FEEL THAT MR DENISE IS NOT IN PAIN. HE LOOKS COMFORTABLE AND WAS ABLE TO TELL ME THAT HE IS COMFORTABLE ONCE. HE SPEAKS A LITTLE ON AND OFF. GIVEN ATIVAN ONCE FOR ANXIETY THAT SEEMS TO HAVE HELPED. HE HAS SCOPOLOMINE PATCH ON AND GIVEN ATROPINE SL DROPS FOR SECRETIONS. HE HAS BEEN NPO. ANTWAN UOP ~500CC SO FAR USING PUREWICK. BED LOW, CALL LIGHT IN REACH.
--- NOTE | 2024-04-25 16:30 | NUR ---
HAVE REPOSITIONED THE PATIENT TWICE, HE SEEMS IN PAIN WHEN WE DO THIS. NURSE ON TOP OF HIS PAIN MEDS.
--- NOTE | 2024-04-26 06:12 | NUR ---
PT A&O TO SELF ONLY, COMFORT CARE PT, FAMILY AT BS. PT WITH NO UOP, NO INTAKE. PAIN NOTED BY INCREASED RESP, AND HR. MEDICATED WITH ROXINOL X3 AND ATIVAN IVP X1. PT WAS STRUGELING WITH SECRETIONS THIS SHIFT ATROPINE ADMINISTERED X2 THIS SHIFT. PLAN TO D/C TO [facility].
--- NOTE | 2024-04-26 10:57 | NUR ---
Upon receiving a referral for spiritual and after several attempts, I visited with the family. The family are tearful but appropriate as they express their anticipatory grief. I conduct a life review of the patient and learn about his many careers and talents and about how well loved he is. 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 I learn about his 9 grown children and the way they have rallied together to be at his side in his last days. I provided therapeutic listening, anticipatory grief support and prayer. Family responded well and showed signs of being comforted. I will continue to remain available to family.
--- NOTE | 2024-04-26 13:32 | NUR ---
PATIENT FAMILY CALLED TO NOTIFY ME OF PATIENT NOT BREATHING. WENT INTO ROOM TO AUSCULATE HEART SOUNDS, NONE HEARD. LISETH REINA 2ND RN VERIFYING TIME OF AT 1304. DR. BLAKELY NOTIFIED. FAMILY NOTFIED. FAMILY STILL IN ROOM.
--- NOTE | 2024-04-26 15:16 | NUR ---
Short visit with family just after patient passed. Supplied a prayer and grief support. Family responded well and showed signs of being comforted.
--- NOTE | 2024-04-26 16:48 | NUR ---
PATIENT PICKED UP BY [facility]IM[facility] WITH [facility]. FAMILY TOOK HOME BELONGINGS. IV REMOVED. POST MORTEM CARE COMPLETED BY BREAK NURSE AND EVELYN
== END 2024-04-26 13:04 ==
LOC: ER 14:54 → PCU 17:38 → ERHOLD 17:38 → MEDS 17:38 → PCU 21:32 → MEDS 04-24 18:16
PROVIDERS: Emergency Medicine; ADMIT Family Medicine
DX: I21.4 Non-ST elevation (NSTEMI) myocardial infarction (principal); F01.53 Vascular dementia, unspecified severity, with mood disturbance; I50.22 Chronic systolic (congestive) heart failure; I69.954 Hemiplegia and hemiparesis following unspecified cerebrovascular disease affecting left non-dominant side; I13.0 Hypertensive heart and chronic kidney disease with heart failure and stage 1 through stage 4 chronic kidney disease, or unspecified chronic kidney disease; F01.54 Vascular dementia, unspecified severity, with anxiety; I16.1 Hypertensive emergency; I48.20 Chronic atrial fibrillation, unspecified; Z51.5 Encounter for palliative care; Z66 Do not resuscitate; E11.40 Type 2 diabetes mellitus with diabetic neuropathy, unspecified; E11.22 Type 2 diabetes mellitus with diabetic chronic kidney disease; N18.9 Chronic kidney disease, unspecified; D75.838 Other thrombocytosis; E78.5 Hyperlipidemia, unspecified; G40.909 Epilepsy, unspecified, not intractable, without status epilepticus; G47.33 Obstructive sleep apnea (adult) (pediatric); I16.0 Hypertensive urgency; Z88.8 Allergy status to other drugs, medicaments and biological substances; Z79.82 Long term (current) use of aspirin; Z79.01 Long term (current) use of anticoagulants; Z79.4 Long term (current) use of insulin; Z79.899 Other long term (current) drug therapy; Z87.442 Personal history of urinary calculi; I25.2 Old myocardial infarction; Z95.5 Presence of coronary angioplasty implant and graft; Z86.16 Personal history of COVID-19; Z98.890 Other specified postprocedural states
CPT/HCPCS: 36415; 71045; 80053; 82947; 83690; 83735; 83880; 84484; 85025; 85027; 85610; 85730; 93005; 93010; 96374; 99285-25; A9270; J0282; J1630; J1644; J2060; J2270; J3480; J7050